=== PATIENT | female | born 1945 | race Caucasian/White ===

== ENCOUNTER 2020-03-22 10:32 | Outpatient (REF) | payer MEDICARE, SELFPAY ==
[2020-03-22 11:36] LABS: MANUAL DIFF FLAG NO
[2020-03-22 11:42] LABS: Basophils Percent Auto 0.6 % (0-2); Eosinophils Absolute Auto 0.1 X10*3/uL (0.0-0.4); Eosinophils Percent Auto 4.1 % (0-4); Hemoglobin 13.2 g/dl (12.0-16.0); Lymphocytes Absolute Auto 1.4 X10*3/uL (1.2-4.9); Lymphocytes Percent Auto 41.8 % (20-40); Mean Corpuscular Hemoglobin 29.7 pg (27.0-33.0); Mean Corpuscular Volume 89.9 fL (80-98); Mean Platelet Volume 9.6 fL (9.4-12.3); Monocytes Absolute Auto 0.4 X10*3/uL (0.1-1.2); Monocytes Percent Auto 12.4 % (2-11); Neutrophils Absolute Auto 1.4 X10*3/uL (2.0-8.3); Neutrophils Percent Auto 41.1 % (45-73); Platelet Count 171 X10*3/uL (160-400); Red Blood Count 4.45 X10*6/uL (4.20-5.50); Red Cell Distribution Width 13.3 % (11.0-16.0); White Blood Count 3.4 X10*3/uL (4.8-10.8)
[2020-03-22 12:00] LABS: Alanine Aminotransferase 22 U/L (0-31); Albumin Level 4.6 g/dL (3.5-5.0); Alkaline Phosphatase 63 U/L (39-117); Anion Gap 14 (12-20); Aspartate Amino Transferase 22 U/L (5-31); Bilirubin Total 0.6 mg/dL (0.0-1.0); Blood Urea Nitrogen 9 mg/dL (9-16); Calcium 9.5 mg/dL (8.4-10.2); Carbon Dioxide 26 mmol/L (22-29); Chloride 104 mmol/L (96-108); Cholesterol 176 mg/dL; Estimated Glomerular Filt Rate > 60; Glucose Random 101 mg/dL (60-115); HDL Cholesterol 81 mg/dL; LDL Cholesterol Calculated 78 mg/dl; Potassium 3.8 mmol/l (3.3-5.1); Sodium 140 mmol/L (135-145); Total Protein 7.1 g/dL (6.5-8.0); Triglycerides 87 mg/dL
== END 2020-03-22 10:33 | disposition home or self-care (01) ==
LOC: HO.LAB 10:32
PROVIDERS: PCP Internal Medicine; Visit Provider Internal Medicine
DX: E78.00 Pure hypercholesterolemia, unspecified (principal); I10 Essential (primary) hypertension
CPT/HCPCS: 36415; 80053; 80061; 85025

== ENCOUNTER 2020-12-14 13:24 | Outpatient (REF) | payer MEDICARE, SELFPAY ==
--- NOTE | ~2020-12-14 | MM_ITS ---
EXAMINATION: MM DIAGNOSTIC DIGITAL BREAST TOMOSYNTHESIS, BILATERAL CLINICAL INFORMATION: Due for yearly. Also follow-up probable benign calcifications anterior upper outer left breast. The lifetime risk of breast cancer based on the Tyrer-Cuzick Model is 3%. COMPARISON: Mammography: 11/14/2019, 05/16/2019, 11/09/2018, 10/22/2018 (BI-RADS 0), 10/08/2017 TECHNIQUE: Digital breast tomosynthesis is performed in both the craniocaudal and mediolateral oblique views along with computer-aided detection (CAD). Synthesized 2D images are generated from the tomosynthesis. Additional views left breast are obtained: Magnification CC, magnification ML x2. FINDINGS: There are scattered areas of fibroglandular density (ACR BI-RADS breast composition Category b). Parenchymal pattern is similar to prior studies. There is no developing density or interval mass or architectural abnormality. The axilla and skin contours are unremarkable. The left breast again has stable nodule 3:00 left breast and incidental dermal lesion overlying the posterior 12:00 position. The calcifications on left for follow-up are stable from prior diagnostic exams and now considered to be benign. There are new very fine punctate calcifications in the left breast upper outer quadrant on the magnification views, likely vascular in etiology. These will be followed again in 6 months to include magnification views. Results are discussed with the patient at time of visit. MM/MM tomosynthesis diagnostic BI IMPRESSION: Left: -New fine probable benign calcifications upper outer quadrant, likely vascular in etiology. -Left calcifications for follow-up are stable from prior diagnostic exams and now considered to be benign. Right: -No mammographic evidence of malignancy. ASSESSMENT: BI-RADS 3: Probably Benign RECOMMENDATION: Diagnostic left mammography in 6 months. This patient's information was entered into a reminder system with a target due date for their next mammogram.
== END 2020-12-14 13:25 | disposition home or self-care (01) ==
LOC: HO.MAMMO 13:24
PROVIDERS: PCP Internal Medicine; Visit Provider Internal Medicine
DX: R92.1 Mammographic calcification found on diagnostic imaging of breast (principal)
CPT/HCPCS: 77062; 77066

== ENCOUNTER 2021-01-21 09:51 | Outpatient (REF) | payer MEDICARE, SELFPAY ==
[2021-01-21 10:47] LABS: MANUAL DIFF FLAG NO
[2021-01-21 10:51] LABS: Basophils Percent Auto 1.2 % (0-2); Eosinophils Absolute Auto 0.1 X10*3/uL (0.0-0.4); Eosinophils Percent Auto 3.2 % (0-4); Hematocrit 38.5 % (37-47); Lymphocytes Absolute Auto 1.6 X10*3/uL (1.2-4.9); Lymphocytes Percent Auto 46.7 % (20-40); Mean Corpuscular HGB Conc 33.8 g/dl (31.0-35.0); Mean Corpuscular Hemoglobin 29.8 pg (27.0-33.0); Mean Corpuscular Volume 88.3 fL (80-98); Mean Platelet Volume 9.5 fL (9.4-12.3); Monocytes Absolute Auto 0.5 X10*3/uL (0.1-1.2); Monocytes Percent Auto 14.7 % (2-11); Neutrophils Absolute Auto 1.2 X10*3/uL (2.0-8.3); Neutrophils Percent Auto 34.2 % (45-73); Platelet Count 177 X10*3/uL (160-400); Red Blood Count 4.36 X10*6/uL (4.20-5.50); Red Cell Distribution Width 13.1 % (11.0-16.0); White Blood Count 3.5 X10*3/uL (4.8-10.8)
[2021-01-21 11:12] LABS: Alanine Aminotransferase 20 U/L (0-31); Albumin Level 4.6 g/dL (3.5-5.0); Alkaline Phosphatase 58 U/L (39-117); Anion Gap 15 (12-20); Aspartate Amino Transferase 22 U/L (5-31); Bilirubin Total 0.6 mg/dL (0.0-1.0); Blood Urea Nitrogen 12 mg/dL (9-16); Calcium 9.8 mg/dL (8.4-10.2); Carbon Dioxide 25 mmol/L (22-29); Chloride 103 mmol/L (96-108); Cholesterol 175 mg/dL; Estimated Glomerular Filt Rate > 60; Glucose Random 95 mg/dL (60-115); HDL Cholesterol 70 mg/dL; LDL Cholesterol Calculated 81 mg/dl; Potassium 3.8 mmol/L (3.3-5.1); Sodium 139 mmol/L (135-145); Total Protein 7.1 g/dL (6.5-8.0); Triglycerides 120 mg/dL
== END 2021-01-21 09:52 | disposition home or self-care (01) ==
LOC: HO.LAB 09:51
PROVIDERS: PCP Internal Medicine; Visit Provider Internal Medicine
DX: E78.00 Pure hypercholesterolemia, unspecified (principal); I10 Essential (primary) hypertension; Q85.03 Schwannomatosis
CPT/HCPCS: 36415; 80053; 80061; 85025

== ENCOUNTER 2021-01-30 08:51 | Outpatient (REF) | payer MEDICARE, SELFPAY ==
--- NOTE | ~2021-01-30 | CT_ITS ---
EXAMINATION: CT CHEST AND ABDOMEN WITH IV CONTRAST CLINICAL INFORMATION: Right upper quadrant pain. Chest tightness. COMPARISON: Previous chest x-rays, most recent December 2018, previous chest CT March 2013 and previous abdominal pelvic CT August 2013. TECHNIQUE: Axial images through the chest and abdomen following oral and 65 mL Omnipaque 350 intravenous contrast. Sagittal and coronal reconstructions on the technologist workstation were performed. FINDINGS: CHEST: There is scarring or subsegmental atelectasis seen in the posterior right lower lobe adjacent to the T10 vertebral body. This is slightly increased from old exams, most recent March 2013. There are surgical clips adjacent to the spine in this region. There is a small 2 mm peripheral or subpleural left upper lobe nodule adjacent to the fissure axial image 103 series 4. The lungs are otherwise clear. There are no enlarged hilar or mediastinal lymph nodes. The heart does not appear enlarged. There is no pericardial effusion. There is mild coronary artery calcification. There is no pleural effusion or pleural thickening. No chest wall mass or enlarged axillary lymph nodes are seen. There are surgical clips adjacent to the right T10 vertebral body. There are degenerative changes of the spine. There is evidence of old trauma to the right ribs. ABDOMEN: The liver is low in attenuation suggestive of fatty infiltration. No focal liver lesion. The gallbladder is normal. There is no biliary duct dilatation. The spleen, pancreas and adrenal glands are normal. There are bilateral renal cysts. Largest cyst measures 5 cm exophytic to the lower pole of the left kidney. The kidneys are otherwise unremarkable. Visualized bowel is unremarkable. The appendix is not seen. The stomach is not optimally distended. No ascites or adenopathy is seen. No hernia is seen. There is evidence of atherosclerotic disease. No aneurysm is seen. There are degenerative changes of the spine. CT/CT abdomen w con IMPRESSION: CHEST: Interval increase in scarring or subsegmental atelectasis in the right lower lobe adjacent to the spine. There are surgical clips adjacent to the right side of the T10 vertebral body. Mild coronary artery calcification. ABDOMEN: Fatty liver. Bilateral renal cysts.
[2021-01-30] MEDS: iohexoL 350 MG/ML 100 ML INFUS..BTL IV (11:39)
[2021-01-30] MEDS: Barium Sulfate Oral (Berry) 450 ML ORAL.SUSP PO (11:41)
== END 2021-01-30 08:52 | disposition home or self-care (01) ==
LOC: HO.CT 08:51
PROVIDERS: Visit Provider Internal Medicine
DX: Q85.03 Schwannomatosis (principal)
CPT/HCPCS: 71260; 74160; Q9967

== ENCOUNTER 2021-06-27 12:50 | Outpatient (REF) | payer MEDICARE, SELFPAY ==
--- NOTE | ~2021-06-27 | MM_ITS ---
EXAMINATION: MM DIAGNOSTIC DIGITAL BREAST TOMOSYNTHESIS, LEFT CLINICAL INFORMATION: Short interval six-month probable fine vascular calcifications upper outer left breast, noted on prior mammography 12/14/2020. The lifetime risk of breast cancer based on the Tyrer-Cuzick Model is 3%. COMPARISON: Mammography: 12/14/2020 (diagnostic, BI-RADS 3), 11/14/2019, 05/16/2019, 11/09/2018, 10/22/2018. TECHNIQUE: Digital breast tomosynthesis is performed in both the craniocaudal and mediolateral oblique views along with computer-aided detection (CAD). Synthesized 2D images are generated from the tomosynthesis. Additional magnification left CC and magnification left ML views are obtained. FINDINGS: There are scattered areas of fibroglandular density (ACR BI-RADS breast composition Category b). There are some round coarse calcifications anterior upper outer left breast previously under surveillance which are benign. The new fine calcifications mid upper outer left breast are stable from prior diagnostic exam 12/14/2020. These may be early vascular and will be reassessed again at time of annual bilateral mammography, due in 6 months. The left breast parenchymal pattern is similar to prior studies. There is old nodule anterior upper outer breast and a dermal lesion overlying the 12:00 left breast. No interval mass or architectural abnormality. Results are provided to the patient at time of visit by the technologist. MM/MM tomosynthesis diagnostic LT IMPRESSION: New fine calcifications upper outer left breast under surveillance are possibly vascular and stable. There are no significant changes from prior study. ASSESSMENT: BI-RADS 3: Probably Benign RECOMMENDATION: Diagnostic mammography at time of annual mammography, due in 6 months. This patient's information was entered into a reminder system with a target due date for their next mammogram.
== END 2021-06-27 12:51 | disposition home or self-care (01) ==
LOC: HO.MAMMO 12:50
PROVIDERS: PCP Internal Medicine; Visit Provider Internal Medicine
DX: R92.1 Mammographic calcification found on diagnostic imaging of breast (principal)
CPT/HCPCS: 77061; 77065

== ENCOUNTER 2021-12-30 09:37 | Outpatient (REF) | payer MEDICARE, SELFPAY ==
[2021-12-30 10:01] LABS: MANUAL DIFF FLAG NO
[2021-12-30 10:39] LABS: Basophils Percent Auto 0.8 % (0-2); Eosinophils Absolute Auto 0.1 X10*3/uL (0.0-0.4); Eosinophils Percent Auto 3.1 % (0-4); Hematocrit 41.4 % (37.0-47.0); Hemoglobin 13.7 g/dl (12.0-16.0); Imm Gran Abs Auto 0.01 X10*3/uL (0.00-0.03); Imm Gran Pct Auto 0.3 % (0.0-0.4); Lymphocytes Absolute Auto 1.6 X10*3/uL (1.2-4.9); Lymphocytes Percent Auto 41.7 % (20-40); Mean Corpuscular HGB Conc 33.1 g/dl (31.0-35.0); Mean Corpuscular Volume 87.7 fL (80.0-98.0); Mean Platelet Volume 9.8 fL (9.4-12.3); Monocytes Absolute Auto 0.5 X10*3/uL (0.1-1.2); Monocytes Percent Auto 12.5 % (2-11); Neutrophils Absolute Auto 1.6 x10*3/uL (2.0-8.3); Neutrophils Percent Auto 41.6 % (45-73); Platelet Count 195 X10*3/uL (160-400); Red Blood Count 4.72 X10*6/uL (4.20-5.50); Red Cell Distribution Width 14.3 % (11.0-16.0); White Blood Count 3.8 X10*3/uL (4.8-10.8)
[2021-12-30 11:05] LABS: Alanine Aminotransferase 16 U/L (0-31); Albumin Level 4.8 g/dL (3.5-5.0); Alkaline Phosphatase 63 U/L (39-117); Anion Gap 15 (12-20); Aspartate Amino Transferase 20 U/L (5-31); Bilirubin Total 0.9 mg/dL (0.0-1.0); Blood Urea Nitrogen 10 mg/dL (9-16); Calcium 9.8 mg/dL (8.4-10.2); Carbon Dioxide 27 mmol/L (22-29); Chloride 104 mmol/L (96-108); Cholesterol 211 mg/dL; Estimated Glomerular Filt Rate > 60; Glucose Random 103 mg/dL (60-115); HDL Cholesterol 86 mg/dL; LDL Cholesterol Calculated 105 mg/dl; Potassium 3.6 mmol/L (3.3-5.1); Sodium 142 mmol/L (135-145); Total Protein 7.4 g/dL (6.5-8.0); Triglycerides 104 mg/dL
[2021-12-30 11:26] LABS: Thyroid Stimulating Hormone 2.24 uIU/mL (0.32-4.0)
== END 2021-12-30 09:38 | disposition home or self-care (01) ==
LOC: HO.LAB 09:37
PROVIDERS: PCP Internal Medicine; Visit Provider Internal Medicine
DX: E78.00 Pure hypercholesterolemia, unspecified (principal); I10 Essential (primary) hypertension; K21.9 Gastro-esophageal reflux disease without esophagitis; R23.8 Other skin changes
CPT/HCPCS: 36415; 80053; 80061; 84443; 85025

== ENCOUNTER 2022-01-09 13:36 | Outpatient (REF) | payer MEDICARE, SELFPAY ==
--- NOTE | ~2022-01-09 | MM_ITS ---
EXAMINATION: MM DIAGNOSTIC DIGITAL BREAST TOMOSYNTHESIS, BILATERAL CLINICAL INFORMATION: Due for yearly. Also follow-up probable benign possibly vascular calcifications mid 12:00 left breast, initially described on mammography 12/14/2020. The lifetime risk of breast cancer based on the Tyrer-Cuzick Model is 2%. COMPARISON: Mammography: 06/27/2021, 12/14/2020 (diagnostic, BI-RADS 3), 11/14/2019, 05/16/2019, 11/09/2018, 10/22/2018. TECHNIQUE: Digital breast tomosynthesis is performed in both the craniocaudal and mediolateral oblique views along with computer-aided detection (CAD). Synthesized 2D images are generated from the tomosynthesis. FINDINGS: There are scattered areas of fibroglandular density (ACR BI-RADS breast composition Category b). No developing density or architectural abnormality. There is a stable smooth nodule anterior outer left breast and a dermal lesion overlying the posterior 12:00 left breast. The axilla and skin contours are unremarkable. The calcifications for follow-up mid 12:00 left breast are stable from prior diagnostic exam and are likely vascular. They will be reassessed again at next bilateral annual mammography to conclude long-term surveillance. Other calcifications anterior outer left breast previously under surveillance are again noted as incidental finding. Results are provided to the patient at time of visit by the technologist. MM/MM tomosynthesis diagnostic BI IMPRESSION: Left: -Calcifications for follow-up mid 12:00 position, stable, possibly vascular. -Stable circumscribed nodule anterior outer breast. Dermal lesion posterior 12:00. Right: -No mammographic evidence of malignancy. ASSESSMENT: BI-RADS 3: Probably Benign RECOMMENDATION: Diagnostic mammography at time of next annual exam, due in 12 months. This patient's information was entered into a reminder system with a target due date for their next mammogram.
== END 2022-01-09 13:37 | disposition home or self-care (01) ==
LOC: HO.MAMMO 13:36
PROVIDERS: PCP Internal Medicine; Visit Provider Internal Medicine
DX: R92.1 Mammographic calcification found on diagnostic imaging of breast (principal)
CPT/HCPCS: 77062; 77066

== ENCOUNTER 2022-07-22 10:20 | Outpatient (REF) | payer MEDICARE, SELFPAY ==
[2022-07-22 10:53] LABS: MANUAL DIFF FLAG NO
[2022-07-22 11:03] LABS: Hematocrit 41.3 % (37.0-47.0); Hemoglobin 13.9 g/dl (12.0-16.0); Mean Corpuscular HGB Conc 33.7 g/dl (31.0-35.0); Mean Corpuscular Hemoglobin 30.1 pg (27.0-33.0); Mean Corpuscular Volume 89.4 fL (80.0-98.0); Platelet Count 174 X10*3/uL (160-400); Red Blood Count 4.62 X10*6/uL (4.20-5.50); Red Cell Distribution Width 13.2 % (11.0-16.0)
[2022-07-22 11:04] LABS: Basophils Percent Auto 0.7 % (0-2); Eosinophils Absolute Auto 0.1 X10*3/uL (0.0-0.4); Eosinophils Percent Auto 3.3 % (0-4); Imm Gran Abs Auto 0.01 X10*3/uL (0.00-0.03); Imm Gran Pct Auto 0.3 % (0.0-0.4); Lymphocytes Absolute Auto 1.4 X10*3/uL (1.2-4.9); Lymphocytes Percent Auto 45.9 % (20-40); Mean Platelet Volume 9.7 fL (9.4-12.3); Monocytes Absolute Auto 0.4 X10*3/uL (0.1-1.2); Monocytes Percent Auto 13.2 % (2-11); Neutrophils Absolute Auto 1.1 x10*3/uL (2.0-8.3); Neutrophils Percent Auto 36.6 % (45-73)
[2022-07-22 11:49] LABS: Alanine Aminotransferase 17 U/L (0-31); Albumin Level 4.5 g/dL (3.5-5.0); Alkaline Phosphatase 67 U/L (39-117); Anion Gap 14 (12-20); Aspartate Amino Transferase 19 U/L (5-31); Bilirubin Total 0.9 mg/dL (0.0-1.0); Blood Urea Nitrogen 9 mg/dL (9-16); Calcium 9.7 mg/dL (8.4-10.2); Carbon Dioxide 26 mmol/L (22-29); Chloride 103 mmol/L (96-108); Cholesterol 200 mg/dL; Estimated Glomerular Filt Rate > 60; Glucose Random 95 mg/dL (60-115); HDL Cholesterol 82 mg/dL; LDL Cholesterol Calculated 101 mg/dl; Potassium 3.7 mmol/L (3.3-5.1); Sodium 139 mmol/L (135-145); Total Protein 6.9 g/dL (6.5-8.0); Triglycerides 85 mg/dL
[2022-07-22 12:10] LABS: Vitamin D 25-OH Total 27.6 ng/mL (>30)
== END 2022-07-22 10:21 | disposition home or self-care (01) ==
LOC: HO.LAB 10:20
PROVIDERS: PCP Internal Medicine; Visit Provider Internal Medicine
DX: E78.00 Pure hypercholesterolemia, unspecified (principal); G47.62 Sleep related leg cramps; I10 Essential (primary) hypertension; K44.9 Diaphragmatic hernia without obstruction or gangrene
CPT/HCPCS: 36415; 80053; 80061; 82306; 85025

== ENCOUNTER → 2022-09-17 09:49 | Outpatient (BNVA) | payer MEDICARE, SELFPAY | PROVIDERS: PCP Internal Medicine; Visit Provider Orthopaedic Surgery | DX: M65.312 Trigger thumb, left thumb (principal); G56.03 Carpal tunnel syndrome, bilateral upper limbs | CPT/HCPCS: 20550; 99202; J1100 ==

== ENCOUNTER 2022-11-28 07:42 | Outpatient (REF) | payer MEDICARE, SELFPAY ==
--- NOTE | ~2022-11-28 | CT_ITS ---
EXAMINATION: CT HEAD WITHOUT CONTRAST CLINICAL INFORMATION: Ataxic gait. Concussion. COMPARISON: Brain MRI dated 01/27/2019. TECHNIQUE: Contiguous axial imaging was performed from the skull base to vertex without intravenous administration of contrast. This CT examination was performed using dose optimization techniques as appropriate, variously including the following: *Automated exposure control *Adjustment of mA and/or kV according to patient size (this includes techniques or standardized protocols for targeted exams where dose is matched to indication/reason for exam; i.e. extremities or head) *Use of iterative reconstruction technique DLP: 805 mGy-cm FINDINGS: There is no evidence of acute intracranial hemorrhage or territorial infarction. No abnormal mass effect or midline shift is seen. Doran to white matter differentiation is well preserved. No extra-axial fluid collections are identified. No evidence of hydrocephalus. Mild chronic white matter microangiopathic changes noted. The osseous structures and soft tissues are normal. The mastoid air cells and visualized portions of the paranasal sinuses are fairly well aerated. CT/CT head/brain wo IV con IMPRESSION: No acute intracranial hemorrhage or territorial infarction. Generalized parenchymal volume loss and mild chronic white matter microangiopathy.
== END 2022-11-28 07:43 | disposition home or self-care (01) ==
LOC: HO.CT 07:42
PROVIDERS: PCP Internal Medicine; Visit Provider Internal Medicine
DX: S06.0X0S Concussion without loss of consciousness, sequela (principal); R26.0 Ataxic gait
CPT/HCPCS: 70450

== ENCOUNTER 2022-12-19 11:48 | Emergency (ER) | payer MEDICARE, SELFPAY ==
--- NOTE | ~2022-12-19 | XR_ITS ---
EXAMINATION: XR CHEST CLINICAL INFORMATION: Chest pain COMPARISON: Previous chest CT January 2021 and chest x-ray December 2018 TECHNIQUE: 2 views of the chest were obtained. FINDINGS: The cardiac and mediastinal contours are stable. The lungs are clear. There are surgical clips adjacent to the right lower thoracic spine. There is no pleural effusion or pneumothorax. There are degenerative changes of the thoracic spine. There are old right rib fractures. XR/XR chest 2V IMPRESSION: No evidence for acute disease in the chest.
--- NOTE | 2022-12-19 11:54 | ECG_ITS ---
Test Reason : HEART ATTACK? Blood Pressure : / mmHG Vent. Rate : 084 BPM Atrial Rate : 084 BPM P-R Int : 130 ms QRS Dur : 082 ms QT Int : 374 ms P-R-T Axes : 043 030 035 degrees QTc Int : 441 ms Normal sinus rhythm Normal ECG When compared with ECG of 26-JAN-2019 15:08, No significant change was found Referred By: Generic ED Physician Electronically Signed By:aMnny Arango
[2022-12-19 12:44] VITALS: BP 159/77; PULSE 79; RESP 8; TEMP 36.6; O2SAT 98; BMI 30.9
--- NOTE | 2022-12-19 12:45 | ED_ITS ---
HPI - General Adult General Chief complaint: General Medical Stated complaint: heart attack Time Seen by Provider: 12/19/22 18:43 Source: patient, family (daughter), RN notes reviewed and old records reviewed Mode of arrival: ambulatory Limitations: no limitations History of Present Illness HPI narrative: 77-year-old female past medical history significant for hypertension presents for evaluation of left upper back pain. Patient reports her pain started yesterday evening A radiates to the back of her neck. She denies any chest pain or shortness of breath Per the daughter, the patient was doing yard work and mowing the lawn She states that her pain comes and goes and is worse if she sits in certain positions or moves her left She describes it as ?muscle spasms. ? At worst her pain is 10/10 Her pain is currently a 6/10. She tried acetaminophen without any change or symptoms. She took 2 aspirin with mild improvement in her symptoms Denies any specific injury that she Related Data Home Medications Medication Instructions Recorded Confirmed lisinopril 10 1 tab PO DAILY 09/17/22 mg-hydrochlorothiazide 12.5 mg tablet omeprazole 10 mg capsule,delayed 10 mg PO DAILY 09/17/22 release simvastatin 5 mg tablet 5 mg PO DAILY 09/17/22 Previous Rx's Medication Instructions Recorded baclofen 10 mg tablet 10 mg PO BID muscle spasms #10 tabs 12/19/22 oxycodone 5 mg tablet 5 mg PO Q6H PRN severe pain (scale 12/19/22 score 7-10) #12 tabs Allergies Allergy/AdvReac Type Severity Reaction Status Date / Time caffeine [Cafergot] Allergy Unknown Unknown Verified 12/19/22 12:44 ergotamine [Cafergot] Allergy Unknown Unknown Verified 12/19/22 12:44 penicillin V Allergy Unknown angioedema Verified 12/19/22 12:44 Penicillins Allergy Unknown TONGUE Verified 12/19/22 12:44 SWELLING sucralfate [From CARAFATE] Allergy Unknown UNKNOWN Verified 12/19/22 12:44 erythromycin base AdvReac Unknown LETHARGY Verified 12/19/22 12:44 Erythromycin Allergy Unknown Anxiety Uncoded 09/17/22 10:08 Review of Systems Constitutional: Constitutional: Reports as per HPI, Denies chills, Denies fatigue, Denies fever(s) and Denies headache(s) ENT: Denies headache(s) Cardiovascular: Cardiovascular: Denies chest pain and Denies dyspnea Respiratory: Respiratory: Denies cough and Denies dyspnea Gastrointestinal: Gastrointestinal: Denies abdominal pain, Denies constipation and Denies vomiting Genitourinary: Genitourinary: Denies dysuria Musculoskeletal: Musculoskeletal: Reports back pain Neurologic: Denies headache(s) and Denies focal weakness Endocrine: Endocrine: Denies fatigue PMFSH Past Medical History Medical History (Updated 12/19/22 @ 19:06 by Lester Ortiz) Acid reflux High blood pressure High cholesterol Social History Social History (Updated 09/17/22 @ 10:10 by Barbra Rodríguez [facility] C[facility]ang) Alcohol intake: current Alcohol intake frequency: a few times a month Smoked in Last 30 Days: No Use of substances other than those prescribed or required for medical reasons: No Advance Directives: No Advance Directives Information Provided: No Current occupational status: retired Current occupation: rt hand Physical Exam ED Vital Signs: Vital Signs - 24 hr 12/19/22 12:44 12/19/22 18:52 Temperature 97.9 F 99.6 F Pulse Rate 79 96 Respiratory Rate 8 L 18 Blood Pressure 159/77 H 153/87 H Pulse Oximetry 98 100 Oxygen Delivery Method Room Air Room Air BMI result Body Mass Index 30.9 Const General: healthy appearing, comfortable, no acute distress, alert and awake Nutritional Appearance: well nourished Orientation/consciousness: patient oriented x3 HENMT Head: Yes normocephalic and Yes atraumatic Eyes Eyelids: Yes eyelids normal Conjunctivae: conjunctivae normal Sclerae: sclerae normal Corneas: corneas normal Pupils: Equal, round and reactive pupils present EOM: EOMs intact bilaterally Neck Neck: Yes full ROM Resp Effort & Inspection: normal respiratory effort, able to speak in complete sentences, no audible wheezes and not labored Auscultation: clear to auscultation bilaterally Cardio Rate: regular rate Rhythm: regular rhythm GI Inspection: No distended Palpation (GI): Soft to palpation, not firm, nontender, no guarding and not rigid Auscultation: normoactive bowel sounds Back/Spine/Pelvis Other: Patient in no tenderness to the left shoulder, she does have left thoracic paraspinous muscle tenderness. She is tender to even light palpation. There are no palpable deformities. No vertebral tenderness. Patient has full range of motion to the neck and both upper extremities. Skin General skin exam: elasticity normal Neuro General: patient oriented x3 Cranial nerves: Yes Equal, round and reactive pupils present and Yes Bilaterally intact EOM present Cognition (Neuro): normal cognition Extrem Other: Moving all extremities well without any obvious deformities Course Course Course Narrative: RME performed by Sari Hess PA-C. Patient is a 77 year old assigned femal e at presenting to the emergency department with left sided shoulder pain. Patient states that she is having extreme' left shoulder pain that came out of no where and has remained intense. Labs and imaging ordered. Patient placed back in the waiting room pending room availability and results. Medical Decision Making Medical Decision Making MDM Narrative: 77-year-old female presents for evaluation of left upper back pain. 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 He chest pain or history of coronary artery disease. Her workup is reassuring, her EKG is nonischemic, she had a troponin that was undetectable despite over 24 hours of pain. Her pain appears to be musculoskeletal and reproducible on exam. Chest x-ray is clear. The patient has no difficulty breathing or shortness of breath or cough. Will get the patient's pain with oxycodone and baclofen for a couple of days and she will follow-up with PCP. She was ruled out for ACS. I do not see any indication for any other further emergent evaluation. Differential Diagnosis Differential Diagnoses: The differential diagnosis associated with the presentation includes Muscle strain Back pain Cervical radiculopathy ACS less likely Bronchitis Pneumonia 80 less likely Admission/Observation Consideration of admission/observation: Escalation of care including admission/observation considered 77-year-old female with chest pain was considered for admission however she ruled out for ACS Lab Data [facility] Lab Attestation statement: I reviewed the patient's lab results. Hematology without any significant findings, no leukocytosis, no anemia, no left shift. Chemistries results showing normal electrolytes with a sodium of 137, potassium 3.3. Normal renal function, troponin undetectable at less than 2.7 12/19/22 13:08 12/19/22 13:08 Labs: Lab Results 12/19/22 12/19/22 12/19/22 Range/Units 13:08 13:08 13:08 WBC 6.8 (4.8-10.8) X10*3/uL RBC 4.95 (4.20-5.50) X10*6/uL Hgb 14.6 (12.0-16.0) g/dl Hct 43.2 (37.0-47.0) % MCV 87.3 (80.0-98.0) fL MCH 29.5 (27.0-33.0) pg MCHC 33.8 (31.0-35.0) g/dl RDW 12.9 (11.0-16.0) % Plt Count 186 (160-400) X10*3/uL MPV 9.5 (9.4-12.3) fL Immature Gran % (Auto) 0.3 (0.0-0.4) % Neut % (Auto) 64.8 (45-73) % Lymph % (Auto) 19.4 L (20-40) % [place] % (Auto) 13.6 H (2-11) % Eos % (Auto) 1.5 (0-4) % Baso % (Auto) 0.4 (0-2) % Lymph # (Auto) 1.3 (1.2-4.9) X10*3/uL [place] # (Auto) 0.9 (0.1-1.2) X10*3/uL Eos # (Auto) 0.1 (0.0-0.4) X10*3/uL Baso # (Auto) 0.0 (0.0-0.2) X10*3/uL Abs Immat Gran (auto) 0.02 (0.00-0.03) X10*3/uL Absolute Neuts (auto) 4.4 (2.0-8.3) x10*3/uL Absolute Nucleated RBC 0.000 (0.0-0.012) X10*3/uL Nucleated RBC % (auto) 0.0 (0.0-0.2) /100WBC Sodium 137 (135-145) mmol/L Potassium 3.3 (3.3-5.1) mmol/L Chloride 101 (96-108) mmol/L Carbon Dioxide 23 (22-29) mmol/L Anion Gap 16 (12-20) BUN 12 (9-16) mg/dL Creatinine 0.78 (0.5-1.4) mg/dL Estim Creat Clear Calc 65.8 Estimated GFR > 60 Random Glucose 92 (60-115) mg/dL Calcium 10.7 H D (8.4-10.2) mg/dL Magnesium 1.8 (1.6-2.6) mg/dL Total Bilirubin 0.5 (0.0-1.0) mg/dL AST 18 (5-31) U/L ALT 15 (0-31) U/L Alkaline Phosphatase 74 (39-117) U/L Troponin I High Sens < 2.7 (<3.5-17.0) ng/L B-Natriuretic Peptide (<100) pg/mL Total Protein 8.0 (6.5-8.0) g/dL Albumin 4.7 (3.5-5.0) g/dL 12/19/22 Range/Units 13:08 WBC (4.8-10.8) X10*3/uL RBC (4.20-5.50) X10*6/uL Hgb (12.0-16.0) g/dl Hct (37.0-47.0) % MCV (80.0-98.0) fL MCH (27.0-33.0) pg MCHC (31.0-35.0) g/dl RDW (11.0-16.0) % Plt Count (160-400) X10*3/uL MPV (9.4-12.3) fL Immature Gran % (Auto) (0.0-0.4) % Neut % (Auto) (45-73) % Lymph % (Auto) (20-40) % [place] % (Auto) (2-11) % Eos % (Auto) (0-4) % Baso % (Auto) (0-2) % Lymph # (Auto) (1.2-4.9) X10*3/uL [place] # (Auto) (0.1-1.2) X10*3/uL Eos # (Auto) (0.0-0.4) X10*3/uL Baso # (Auto) (0.0-0.2) X10*3/uL Abs Immat Gran (auto) (0.00-0.03) X10*3/uL Absolute Neuts (auto) (2.0-8.3) x10*3/uL Absolute Nucleated RBC (0.0-0.012) X10*3/uL Nucleated RBC % (auto) (0.0-0.2) /100WBC Sodium (135-145) mmol/L Potassium (3.3-5.1) mmol/L Chloride (96-108) mmol/L Carbon Dioxide (22-29) mmol/L Anion Gap (12-20) BUN (9-16) mg/dL Creatinine (0.5-1.4) mg/dL Estim Creat Clear Calc Estimated GFR Random Glucose (60-115) mg/dL Calcium (8.4-10.2) mg/dL Magnesium (1.6-2.6) mg/dL Total Bilirubin (0.0-1.0) mg/dL AST (5-31) U/L ALT (0-31) U/L Alkaline Phosphatase (39-117) U/L Troponin I High Sens (<3.5-17.0) ng/L B-Natriuretic Peptide 36 (<100) pg/mL Total Protein (6.5-8.0) g/dL Albumin (3.5-5.0) g/dL Independent Interpretation I performed an independent interpretation of an: EKG and Plain X-Ray (No infiltrates, pleural effusions or pneumothorax) Interpretation: Normal sinus rhythm with a rate of 84 beats per minute. No ST segment changes, no ectopy. No change when compared to December of 2018 Radiology Impression Discussion of test interpretation with radiology: I have reviewed the radiologist's reading. (No evidence for acute disease of the chest) Tests considered The following testing was considered but not selected: CT angiography to rule out PE, but the patient's pain is not hypoxic and has no risk factors for PE Discharge Plan Discharge Clinical Impression: Upper back pain on left side Patient Disposition: Home, Self-Care Instructions: Back Pain (ED) Additional Instructions: Your workup in the emergency department today was reassuring. This includes your blood work, EKG and chest x-ray Your pain is most likely musculoskeletal in origin. You may continue to use Tylenol as needed for pain You may use oxycodone for more severe breakthrough pain. This may make you sleepy, did not drink alcohol or drive after taking it You may also use baclofen as needed for muscle spasms. This may also make you sleepy, did not drink alcohol or drive after taking it You should also use warm compresses Follow-up with your primary doctor Prescriptions: New oxycodone 5 mg tablet 5 mg PO Q6H PRN (Reason: severe pain (scale score 7-10)) Qty: 12 0RF Rx Instructions: Partial Fill upon patient request. baclofen 10 mg tablet 10 mg PO BID Qty: 10 0RF No Action omeprazole 10 mg capsule,delayed release(DR/EC) 10 mg PO DAILY lisinopril-hydrochlorothiazide 10-12.5 mg tablet 1 tab PO DAILY simvastatin 5 mg tablet 5 mg PO DAILY
[2022-12-19 13:31] LABS: Basophils Percent Auto 0.4 % (0-2); Eosinophils Absolute Auto 0.1 X10*3/uL (0.0-0.4); Eosinophils Percent Auto 1.5 % (0-4); Hematocrit 43.2 % (37.0-47.0); Hemoglobin 14.6 g/dl (12.0-16.0); Imm Gran Abs Auto 0.02 X10*3/uL (0.00-0.03); Imm Gran Pct Auto 0.3 % (0.0-0.4); Lymphocytes Absolute Auto 1.3 X10*3/uL (1.2-4.9); Lymphocytes Percent Auto 19.4 % (20-40); MANUAL DIFF FLAG NO; Mean Corpuscular HGB Conc 33.8 g/dl (31.0-35.0); Mean Corpuscular Hemoglobin 29.5 pg (27.0-33.0); Mean Corpuscular Volume 87.3 fL (80.0-98.0); Mean Platelet Volume 9.5 fL (9.4-12.3); Monocytes Absolute Auto 0.9 X10*3/uL (0.1-1.2); Monocytes Percent Auto 13.6 % (2-11); Neutrophils Absolute Auto 4.4 x10*3/uL (2.0-8.3); Neutrophils Percent Auto 64.8 % (45-73); Platelet Count 186 X10*3/uL (160-400); Red Blood Count 4.95 X10*6/uL (4.20-5.50); Red Cell Distribution Width 12.9 % (11.0-16.0); White Blood Count 6.8 X10*3/uL (4.8-10.8)
[2022-12-19 13:44] LABS: Anion Gap 16 (12-20)
[2022-12-19 13:49] LABS: Alanine Aminotransferase 15 U/L (0-31); Albumin Level 4.7 g/dL (3.5-5.0); Alkaline Phosphatase 74 U/L (39-117); Aspartate Amino Transferase 18 U/L (5-31); Bilirubin Total 0.5 mg/dL (0.0-1.0); Blood Urea Nitrogen 12 mg/dL (9-16); Calcium 10.7 mg/dL (8.4-10.2); Carbon Dioxide 23 mmol/L (22-29); Chloride 101 mmol/L (96-108); Creatinine Clr Calc Pharmacy 65.8; Estimated Glomerular Filt Rate > 60; Glucose Random 92 mg/dL (60-115); Magnesium 1.8 mg/dL (1.6-2.6); Potassium 3.3 mmol/L (3.3-5.1); Sodium 137 mmol/L (135-145)
[2022-12-19 13:56] LABS: B Type Natriuretic Peptide 36 pg/mL (<100)
[2022-12-19 13:57] LABS: Troponin-I High Sensitivity < 2.7 ng/L (<3.5-17.0)
[2022-12-19 18:52] VITALS: BP 153/87; PULSE 96; RESP 18; TEMP 37.6; O2SAT 100
[2022-12-19] MEDS: oxyCODONE HCl Immed Release 5 MG TABLET PO (19:24)
--- NOTE | 2022-12-19 19:29 | PC.NURSE ---
alert/oriented x4. assisted to wheelchair for dc. no distress. speaking fluently. respirations nonlabored. skin color pink/warm/dry. daughter to drive home.
== END 2022-12-19 19:30 | disposition home or self-care (01) ==
PROVIDERS: Physician Assistant Medical; Emergency Provider Emergency Medicine
DX: M54.6 Pain in thoracic spine (principal); I10 Essential (primary) hypertension; E78.5 Hyperlipidemia, unspecified; Z79.899 Other long term (current) drug therapy
CPT/HCPCS: 36415; 71046; 80053; 83735; 83880; 84484; 85025; 93005; 99283; 99284

== ENCOUNTER → 2022-12-19 11:54 | Outpatient (BNV) | payer MEDICARE, SELFPAY | PROVIDERS: Emergency Provider Emergency Medicine; Visit Provider Internal Medicine Cardiovascular Disease | DX: M54.6 Pain in thoracic spine (principal) | CPT/HCPCS: 93010 ==

== ENCOUNTER 2023-01-13 12:52 | Outpatient (REF) | payer MEDICARE, SELFPAY ==
--- NOTE | ~2023-01-13 | MM_ITS ---
EXAMINATION: MM DIAGNOSTIC DIGITAL BREAST TOMOSYNTHESIS, BILATERAL CLINICAL INFORMATION: Six-month follow-up for probably benign left breast calcifications, 12:00 axis, middle depth. Patient also due for bilateral screening mammography. The lifetime risk of breast cancer based on the Tyrer-Cuzick Model is 2%. COMPARISON: Mammography: 01/09/2022, 06/27/2021, 12/14/2020, 11/14/2019, and dating back to 2018. TECHNIQUE: Digital breast tomosynthesis is performed in both the craniocaudal and mediolateral oblique views along with computer-aided detection (CAD). Synthesized 2D images are generated from the tomosynthesis. In addition to standard views, 2-D spot magnification left CC view was also performed. FINDINGS: There are scattered areas of fibroglandular density (ACR BI-RADS breast composition Category b). There are no significant masses, abnormal calcifications, or other abnormalities. Subtle, tightly grouped punctate fine calcifications in the 12:00 axis of the left breast, middle one third, are entirely stable and unchanged in both number and morphology from prior exams, and are consistent with benign etiology, probably vascular. There has been no suspicious change. These have been stable over a two-year time period and are now classifiable as benign. A benign focus of calcifications is also present in the upper outer left breast, anterior one third. There is a stable intramammary lymph node in the approximate 3:00 axis left breast. The parenchymal pattern is unchanged in both breasts. Results were provided to the patient at time of visit by the technologist. MM/MM tomosynthesis diagnostic BI IMPRESSION: Benign findings left breast. No findings suspicious for malignancy either breast. Recommend the patient return to routine annual screening. ASSESSMENT: BI-RADS BI-RADS 2 - Benign Findings RECOMMENDATION: 1 year F/U This patient's information was entered into a reminder system with a target due date for their next mammogram.
== END 2023-01-13 12:53 | disposition home or self-care (01) ==
LOC: HO.MAMMO 12:52
PROVIDERS: PCP Internal Medicine; Visit Provider Internal Medicine
DX: R92.1 Mammographic calcification found on diagnostic imaging of breast (principal)
CPT/HCPCS: 77062; 77066

== ENCOUNTER → 2023-01-13 13:00 | Outpatient (BNV) | payer MEDICARE, SELFPAY | PROVIDERS: PCP Internal Medicine; Visit Provider Radiology Diagnostic Radiology | DX: R92.1 Mammographic calcification found on diagnostic imaging of breast (principal) | CPT/HCPCS: 77062; 77066; G0279 ==

== ENCOUNTER 2023-02-16 09:12 | Outpatient (REF) | payer MEDICARE, SELFPAY ==
--- NOTE | ~2023-02-16 | XR_ITS ---
EXAMINATION: XR CERVICAL SPINE CLINICAL INFORMATION: Patient stated she had a concussion back to 09/2022 and sharp neck and shoulder blade pain for 10 weeks. COMPARISON: None available. TECHNIQUE: 4 views of the cervical spine. FINDINGS: Severe degenerative changes at C5-C6 with endplate destruction, subchondral sclerosis, hypertrophic change and loss of disc space height. Mild anterolisthesis of C4 on C5. Degenerative changes at C6-C7 with mild loss of disc space height. XR/XR cervical spine 3V IMPRESSION: Severe, destructive changes at C5-C6. Recommend CT scan or MRI for further evaluation.
[2023-02-16 09:34] LABS: MANUAL DIFF FLAG NO
[2023-02-16 10:03] LABS: Basophils Percent Auto 0.8 % (0-2); Eosinophils Absolute Auto 0.3 X10*3/uL (0.0-0.4); Eosinophils Percent Auto 6.6 % (0-4); Hematocrit 34.9 % (37.0-47.0); Hemoglobin 11.7 g/dl (12.0-16.0); Imm Gran Abs Auto 0.01 X10*3/uL (0.00-0.03); Imm Gran Pct Auto 0.3 % (0.0-0.4); Lymphocytes Absolute Auto 1.2 X10*3/uL (1.2-4.9); Lymphocytes Percent Auto 30.9 % (20-40); Mean Corpuscular HGB Conc 33.5 g/dl (31.0-35.0); Mean Corpuscular Hemoglobin 28.9 pg (27.0-33.0); Mean Corpuscular Volume 86.2 fL (80.0-98.0); Mean Platelet Volume 9.3 fL (9.4-12.3); Monocytes Absolute Auto 0.5 X10*3/uL (0.1-1.2); Monocytes Percent Auto 13.3 % (2-11); Neutrophils Absolute Auto 1.8 x10*3/uL (2.0-8.3); Neutrophils Percent Auto 48.1 % (45-73); Platelet Count 183 X10*3/uL (160-400); Red Blood Count 4.05 X10*6/uL (4.20-5.50); Red Cell Distribution Width 13.1 % (11.0-16.0); White Blood Count 3.8 X10*3/uL (4.8-10.8)
[2023-02-16 10:37] LABS: Alanine Aminotransferase 17 U/L (0-31); Albumin Level 4.1 g/dL (3.5-5.0); Alkaline Phosphatase 113 U/L (39-117); Anion Gap 12 (12-20); Aspartate Amino Transferase 21 U/L (5-31); Bilirubin Total 0.3 mg/dL (0.0-1.0); Blood Urea Nitrogen 16 mg/dL (9-16); Calcium 10.1 mg/dL (8.4-10.2); Carbon Dioxide 26 mmol/L (22-29); Chloride 103 mmol/L (96-108); Cholesterol 172 mg/dL (<200); Estimated Glomerular Filt Rate > 60; Glucose Random 90 mg/dL (60-115); HDL Cholesterol 63 mg/dL (>40); LDL Cholesterol Calculated 90 mg/dL (<100); Potassium 3.8 mmol/L (3.3-5.1); Sodium 137 mmol/L (135-145); Total Protein 7.4 g/dL (6.5-8.0); Triglycerides 95 mg/dL (<150)
== END 2023-02-16 09:13 | disposition home or self-care (01) ==
LOC: HO.XRAY 09:12
PROVIDERS: PCP Internal Medicine; Visit Provider Internal Medicine
DX: M54.2 Cervicalgia (principal); E78.00 Pure hypercholesterolemia, unspecified; I10 Essential (primary) hypertension; M65.312 Trigger thumb, left thumb
CPT/HCPCS: 36415; 72040; 80053; 80061; 85025

== ENCOUNTER 2023-04-16 09:25 | Outpatient (REF) | payer MEDICARE, SELFPAY ==
[2023-04-16 09:43] LABS: MANUAL DIFF FLAG NO
[2023-04-16 10:30] LABS: Basophils Percent Auto 1.1 % (0-2); Eosinophils Absolute Auto 0.1 X10*3/uL (0.0-0.4); Hematocrit 41.2 % (37.0-47.0); Hemoglobin 13.5 g/dl (12.0-16.0); Imm Gran Abs Auto 0.02 X10*3/uL (0.00-0.03); Imm Gran Pct Auto 0.5 % (0.0-0.4); Lymphocytes Absolute Auto 1.8 X10*3/uL (1.2-4.9); Lymphocytes Percent Auto 48.4 % (20-40); Mean Corpuscular HGB Conc 32.8 g/dl (31.0-35.0); Mean Corpuscular Hemoglobin 29.2 pg (27.0-33.0); Mean Corpuscular Volume 89.2 fL (80.0-98.0); Mean Platelet Volume 9.7 fL (9.4-12.3); Monocytes Absolute Auto 0.5 X10*3/uL (0.1-1.2); Monocytes Percent Auto 12.6 % (2-11); Neutrophils Absolute Auto 1.3 x10*3/uL (2.0-8.3); Neutrophils Percent Auto 34.4 % (45-73); Platelet Count 184 X10*3/uL (160-400); Red Blood Count 4.62 X10*6/uL (4.20-5.50); Red Cell Distribution Width 14.5 % (11.0-16.0); White Blood Count 3.7 X10*3/uL (4.8-10.8)
[2023-04-16 11:04] LABS: Alanine Aminotransferase 15 U/L (0-31); Albumin Level 4.6 g/dL (3.5-5.0); Alkaline Phosphatase 79 U/L (39-117); Anion Gap 11 (12-20); Aspartate Amino Transferase 19 U/L (5-31); Bilirubin Total 0.7 mg/dL (0.0-1.0); Blood Urea Nitrogen 17 mg/dL (9-16); Calcium 10.1 mg/dL (8.4-10.2); Carbon Dioxide 30 mmol/L (22-29); Chloride 103 mmol/L (96-108); Cholesterol 198 mg/dL (<200); Estimated Glomerular Filt Rate > 60; Glucose Random 91 mg/dL (60-115); HDL Cholesterol 90 mg/dL (>40); LDL Cholesterol Calculated 88 mg/dL (<100); Potassium 3.3 mmol/L (3.3-5.1); Sodium 141 mmol/L (135-145); Total Protein 7.9 g/dL (6.5-8.0); Triglycerides 101 mg/dL (<150)
[2023-04-16 11:27] LABS: Uric Acid 8.3 mg/dL (2.4-5.7)
== END 2023-04-16 09:26 | disposition home or self-care (01) ==
LOC: HO.LAB 09:25
PROVIDERS: PCP Internal Medicine; Visit Provider Internal Medicine
DX: E78.00 Pure hypercholesterolemia, unspecified (principal); I10 Essential (primary) hypertension; M10.9 Gout, unspecified; M47.812 Spondylosis without myelopathy or radiculopathy, cervical region; Z63.4 Disappearance and death of family member
CPT/HCPCS: 36415; 80053; 80061; 84550; 85025

== ENCOUNTER 2023-06-12 10:21 | Day surgery (SDC) | payer MEDICARE, SELFPAY ==
--- NOTE | 2023-06-10 12:45 | HO.ANESPROP2 ---
Documented by User: Kenia Garvey NP 06/10/23 12:46 HPI - Anesthesia Eval Consult details Narrative: 77yo F for Colonoscopy PMFSH Active Problems Active Problems: All Active Problems (Updated 12/20/22 @ 00:05 by Ernie Lagos) Carpal tunnel syndrome on both sides (Acute) Trigger thumb of left hand (Acute) Past Medical History Medical History Migraines Microhematuria Esophagitis Hiatal hernia Hx of lipoma Gout History of benign schwannoma Hx of concussion Chronic leukopenia Acid reflux High blood pressure High cholesterol Surgical History Surgical History History of thoracotomy History of esophagogastroduodenoscopy (EGD) H/O colonoscopy Hx of appendectomy History of tubal ligation Social History Social History Alcohol intake: current Alcohol intake frequency: a few times a month Advance Directives: No Advance Directives Information Provided: Yes Current occupational status: retired Current occupation: rt hand Meds Allergies Allergy/AdvReac Type Severity Reaction Status Date / Time penicillin V Allergy Severe angioedema Verified 06/12/23 11:14 Penicillins Allergy Severe TONGUE Verified 06/12/23 11:14 SWELLING caffeine [Cafergot] Allergy Intermediate Feeling of Verified 06/12/23 11:14 doom ergotamine [Cafergot] Allergy Intermediate Feeling of Verified 06/12/23 11:14 doom sucralfate [From CARAFATE] Allergy Unknown UNKNOWN Verified 06/12/23 11:14 erythromycin base AdvReac Intermediate LETHARGY Verified 06/12/23 11:14 Home Medications Medication Instructions Recorded Confirmed Last Taken Type lisinopril 10 1 tab PO DAILY 09/17/22 06/12/23 06/11/23 History mg-hydrochlorothiazide 12.5 mg tablet omeprazole 10 mg capsule,delayed 20 mg PO DAILY 09/17/22 06/12/23 Unknown History release simvastatin 5 mg tablet 20 mg PO QPM 09/17/22 06/12/23 Unknown History naproxen 500 mg tablet 500 mg PO BID PRN Pain 06/10/23 06/12/23 06/05/23 History allopurinol 300 mg tablet 300 mg PO DAILY 06/12/23 06/12/23 Unknown History Exam Pertinent Lab Results Pertinent Lab Results: Laboratory Tests 04/16/23 09:42 WBC 3.7 L Hgb 13.5 Hct 41.2 Plt Count 184 Sodium 141 Potassium 3.3 Chloride 103 Carbon Dioxide 30 H BUN 17 H Creatinine 0.82 Narrative Narrative: EKG 11/2022 Vent. Rate : 084 BPM Atrial Rate : 084 BPM P-R Int : 130 ms QRS Dur : 082 ms QT Int : 374 ms P-R-T Axes : 043 030 035 degrees QTc Int : 441 ms Normal sinus rhythm Normal ECG When compared with ECG of 26-JAN-2019 15:08, No significant change was found Assessment and Plan Assessment Anesthesia Assessment: Chart Reviewed Documented by User: Kathleen Cintron MD 06/12/23 12:40 PMFSH Active Problems Active Problems: All Active Problems (Updated 06/12/23 @ 11:12 by Kathleen Cintron MD) Carpal tunnel syndrome on both sides (Acute) Trigger thumb of left hand (Acute) Past Medical History Medical History Migraines Microhematuria Esophagitis Hiatal hernia Hx of lipoma Gout History of benign schwannoma Hx of concussion Chronic leukopenia Acid reflux High blood pressure High cholesterol Family History Family history of problems with anesthesia: No Surgical History Surgical History History of thoracotomy History of esophagogastroduodenoscopy (EGD) H/O colonoscopy Hx of appendectomy History of tubal ligation History of Problems with Anesthesia: No Social History Social History Alcohol intake: current Alcohol intake frequency: a few times a month Advance Directives: No Advance Directives Information Provided: Yes Current occupational status: retired Current occupation: rt hand Meds Allergies Allergy/AdvReac Type Severity Reaction Status Date / Time penicillin V Allergy Severe angioedema Verified 06/12/23 11:14 Penicillins Allergy Severe TONGUE Verified 06/12/23 11:14 SWELLING caffeine [Cafergot] Allergy Intermediate Feeling of Verified 06/12/23 11:14 doom ergotamine [Cafergot] Allergy Intermediate Feeling of Verified 06/12/23 11:14 doom sucralfate [From CARAFATE] Allergy Unknown UNKNOWN Verified 06/12/23 11:14 erythromycin base AdvReac Intermediate LETHARGY Verified 06/12/23 11:14 Home Medications Medication Instructions Recorded Confirmed Last Taken Type lisinopril 10 1 tab PO DAILY 09/17/22 06/12/23 06/11/23 History mg-hydrochlorothiazide 12.5 mg tablet omeprazole 10 mg capsule,delayed 20 mg PO DAILY 09/17/22 06/12/23 Unknown History release simvastatin 5 mg tablet 20 mg PO QPM 09/17/22 06/12/23 Unknown History naproxen 500 mg tablet 500 mg PO BID PRN Pain 06/10/23 06/12/23 06/05/23 History allopurinol 300 mg tablet 300 mg PO DAILY 06/12/23 06/12/23 Unknown History Exam Height,Weight and Vital Signs: Height 5 ft 5 in Weight 83.642 kg Vital Signs Temp Pulse Resp BP Pulse Ox O2 Del Method 06/12/23 11:15 98.4 F 85 16 157/87 H 98 Room Air Airway Mallampati Class: II TM Dist: >3cm Neck ROM: Limited Loose/Missing/Broken Teeth: Yes (Missing 1 tooth top front right. Denies broken or loose teeth) Heart: RRR Lungs: CTAB Assessment and Plan Assessment Anesthesia Assessment: Anesthesia Plan Discussed Final Anesthetic Review Family History of Problems with Anesthesia: No History of Problems with Anesthesia: No NPO: Yes ASA Class: II Final Preanesthetic Review: No Changes in Pt Med Stat, Meds/Allgs Chart Reviewed and Consent Obtained/Reviewed Patient Risk: Low Procedure Risk: Low Assessment/Block/Sedation in SS: Assess/Block/Sedation-SS Anesthetic Plan Anesthetic Plan: TIVA Disposition: Standard PACU
[2023-06-10 14:26] VITALS: BMI 30.1
[2023-06-12 11:15] VITALS: BP 157/87; PULSE 85; RESP 16; TEMP 36.9; O2SAT 98; BMI 30.7
[2023-06-12] MEDS: Lactated Ringers 1,000 ML 100 ML IVCONT (11:40)
[2023-06-12 12:48] VITALS: BP 120/54; PULSE 89; RESP 12; TEMP 36.3; O2SAT 94
--- NOTE | 2023-06-12 12:48 | P.BOP_ITS ---
Brief Operative Note Date of Service: 06/12/23 Pre-op diagnosis: Screening Post-op diagnosis: other (Diverticulosis) Procedure: Colonoscopy to the cecum Surgeon: Abel Alas MD Anesthesia: MAC Was an Audiovisual Lead Technician used for this Procedure?: No Estimated blood loss (mL): 0 Pathology: none sent Condition: stable Disposition: PACU
[2023-06-12 13:02] VITALS: BP 145/69; PULSE 83; RESP 16; O2SAT 97
--- NOTE | 2023-06-12 22:45 | OP_ITS ---
DATE OF SERVICE: 06/12/2023 SURGEON: Abel Alas MD INDICATIONS: Patient presents for evaluation of colorectal cancer screening. Full consent has been obtained from her for this, including risks of bleeding and perforation. PREOPERATIVE DIAGNOSIS: Colorectal cancer screening. POSTOPERATIVE DIAGNOSIS: PROCEDURE PERFORMED: Colonoscopy to the cecum. ESTIMATED BLOOD LOSS: COMPLICATIONS: ANESTHESIA: Monitored anesthesia care. ASSISTANTS: SPECIMENS: POSTOPERATIVE DIAGNOSES: Colorectal cancer screening, diverticulosis, and internal hemorrhoids. DESCRIPTION OF PROCEDURE: The patient was placed in the left lateral decubitus position. The digital rectal exam revealed no abnormalities. The Olympus video pediatric colonoscope was entered into the rectum advanced to the cecum with the assistance of abdominal wall pressure. Once in the cecum I did identify normal-appearing cecal pouch with appendiceal orifice a normal-appearing ileocecal valve. The entire cecum and ileocecal valve appeared normal. The scope was slowly withdrawn assessing all mucosal surfaces carefully. Preparation was excellent. I did not visualize any sign of polyps, colitis, nor angiodysplasia. There was a mild amount of sigmoid diverticulosis. In the rectum, scope was retroflexed, visualizing internal hemorrhoids, but no other pathology. The rectal mucosa appeared normal. Scope was straightened and withdrawn from the patient. She tolerated the procedure well and was returned to the recovery area in stable condition. IMPRESSION: 1. Sigmoid diverticulosis. 2. Small internal hemorrhoids. PLAN: Given today's negative exam and her age, I do not think she will need any further screening colonoscopies. She will otherwise see me on a p.r.n. basis. Abel Alas MD RMW/MODL / [id number] MTDD
== END 2023-06-12 13:50 | disposition home or self-care (01) ==
PROVIDERS: PCP Internal Medicine; Visit Provider Internal Medicine
PROC: 0DJD8ZZ Inspection of Lower Intestinal Tract, Via Natural or Artificial Opening Endoscopic (ICD-10-PCS; CPT 45378; principal; 2023-06-12 11:20)
DX: Z12.11 Encounter for screening for malignant neoplasm of colon (principal); K57.30 Diverticulosis of large intestine without perforation or abscess without bleeding; K64.8 Other hemorrhoids; K21.9 Gastro-esophageal reflux disease without esophagitis; I10 Essential (primary) hypertension; E78.00 Pure hypercholesterolemia, unspecified; D72.818 Other decreased white blood cell count; Z79.1 Long term (current) use of non-steroidal anti-inflammatories (NSAID); Z79.899 Other long term (current) drug therapy; Z88.0 Allergy status to penicillin; Z88.1 Allergy status to other antibiotic agents; Z98.890 Other specified postprocedural states
CPT/HCPCS: G0121; J2704

== ENCOUNTER 2023-07-10 09:53 | Outpatient (REF) | payer MEDICARE, SELFPAY ==
[2023-07-10 10:07] LABS: MANUAL DIFF FLAG NO
[2023-07-10 11:08] LABS: Basophils Percent Auto 0.8 % (0-2); Eosinophils Absolute Auto 0.1 X10*3/uL (0.0-0.4); Eosinophils Percent Auto 3.2 % (0-4); Hematocrit 41.7 % (37.0-47.0); Hemoglobin 13.6 g/dl (12.0-16.0); Imm Gran Abs Auto 0.01 X10*3/uL (0.00-0.03); Imm Gran Pct Auto 0.3 % (0.0-0.4); Lymphocytes Absolute Auto 1.7 X10*3/uL (1.2-4.9); Lymphocytes Percent Auto 44.5 % (20-40); Mean Corpuscular HGB Conc 32.6 g/dl (31.0-35.0); Mean Corpuscular Hemoglobin 30.3 pg (27.0-33.0); Mean Corpuscular Volume 92.9 fL (80.0-98.0); Mean Platelet Volume 9.9 fL (9.4-12.3); Monocytes Absolute Auto 0.5 X10*3/uL (0.1-1.2); Monocytes Percent Auto 13.4 % (2-11); Neutrophils Absolute Auto 1.4 x10*3/uL (2.0-8.3); Neutrophils Percent Auto 37.8 % (45-73); Platelet Count 169 X10*3/uL (160-400); Red Blood Count 4.49 X10*6/uL (4.20-5.50); Red Cell Distribution Width 15.2 % (11.0-16.0); White Blood Count 3.8 X10*3/uL (4.8-10.8)
[2023-07-10 11:34] LABS: Alanine Aminotransferase 13 U/L (0-31); Albumin Level 4.5 g/dL (3.5-5.0); Alkaline Phosphatase 73 U/L (39-117); Anion Gap 15 (12-20); Aspartate Amino Transferase 18 U/L (5-31); Bilirubin Total 0.9 mg/dL (0.0-1.0); Blood Urea Nitrogen 15 mg/dL (9-16); Calcium 10.4 mg/dL (8.4-10.2); Carbon Dioxide 26 mmol/L (22-29); Chloride 102 mmol/L (96-108); Cholesterol 201 mg/dL (<200); Estimated Glomerular Filt Rate > 60; Glucose Random 98 mg/dL (60-115); HDL Cholesterol 91 mg/dL (>40); LDL Cholesterol Calculated 92 mg/dL (<100); Potassium 3.5 mmol/L (3.3-5.1); Sodium 139 mmol/L (135-145); Total Protein 7.6 g/dL (6.5-8.0); Triglycerides 92 mg/dL (<150)
== END 2023-07-10 09:54 | disposition home or self-care (01) ==
LOC: HO.LAB 09:53
PROVIDERS: PCP Internal Medicine; Visit Provider Internal Medicine
DX: E78.00 Pure hypercholesterolemia, unspecified (principal); I10 Essential (primary) hypertension; M10.9 Gout, unspecified; M47.812 Spondylosis without myelopathy or radiculopathy, cervical region; Z63.4 Disappearance and death of family member
CPT/HCPCS: 36415; 80053; 80061; 84550; 85025

== ENCOUNTER 2024-01-07 08:41 | Outpatient (REF) | payer MEDICARE, SELFPAY ==
[2024-01-07 09:38] LABS: Alanine Aminotransferase 20 U/L (0-31); Albumin Level 4.6 g/dL (3.5-5.0); Alkaline Phosphatase 79 U/L (39-117); Anion Gap 16 (12-20); Aspartate Amino Transferase 23 U/L (5-31); Blood Urea Nitrogen 11 mg/dL (9-16); Calcium 10.1 mg/dL (8.4-10.2); Carbon Dioxide 24 mmol/L (22-29); Chloride 101 mmol/L (96-108); Cholesterol 179 mg/dL (<200); Estimated Glomerular Filt Rate > 60; Glucose Random 100 mg/dL (60-115); HDL Cholesterol 92 mg/dL (>40); LDL Cholesterol Calculated 67 mg/dL (<100); Phosphorus 3.2 mg/dL (2.7-4.5); Potassium 3.7 mmol/L (3.3-5.1); Sodium 137 mmol/L (135-145); Total Protein 7.3 g/dL (6.5-8.0); Triglycerides 100 mg/dL (<150)
[2024-01-07 09:57] LABS: Vitamin D 25-OH Total 36.8 ng/mL (>30)
[2024-01-07 10:46] LABS: Parathyroid Hormone Intact 94.2 pg/mL (8.7-77.1)
== END 2024-01-07 08:42 | disposition home or self-care (01) ==
LOC: HO.LAB 08:41
PROVIDERS: PCP Internal Medicine; Visit Provider Internal Medicine
DX: Z00.00 Encounter for general adult medical examination without abnormal findings (principal); E78.00 Pure hypercholesterolemia, unspecified; E83.52 Hypercalcemia; I10 Essential (primary) hypertension
CPT/HCPCS: 36415; 80053; 80061; 82306; 83970; 84100

== ENCOUNTER 2024-01-15 12:48 | Outpatient (REF) | payer MEDICARE, SELFPAY ==
--- NOTE | ~2024-01-15 | MM_ITS ---
EXAMINATION: MM SCREENING DIGITAL BREAST TOMOSYNTHESIS, BILATERAL CLINICAL INFORMATION: Screening. Asymptomatic. COMPARISON: Mammography: This study is compared with prior exams dating back to 2020. TECHNIQUE: Digital breast tomosynthesis is performed in both the craniocaudal and mediolateral oblique views along with computer-aided detection (CAD). Synthesized 2D images are generated from the tomosynthesis. FINDINGS: There are scattered areas of fibroglandular density (ACR BI-RADS breast composition Category b). In the low 12:00 position of the right breast, at its deep third, there are grouped calcifications which point additional mammographic imaging with magnification. In the left breast, there are no significant masses, abnormal calcifications, or other abnormalities. Previously evaluated calcifications and a normal intramammary lymph node in the left breast are present and unchanged. MM/MM tomosynthesis screening BI IMPRESSION: Grouped calcifications of the right breast warrant additional mammographic imaging of magnification. Benign findings left breast. ASSESSMENT: BI-RADS BI-RADS 0 - Incomplete: Needs additional Imaging. RECOMMENDATION: 1. Additional views of the right breast. 2. Targeted ultrasound if warranted after review of the additional views. 3. Radiology department staff will contact the patient for additional imaging. Additional Imaging required This examination should not preclude the clinical evaluation of a suspicious palpable abnormality. This patient's information was entered into a reminder system with a target due date for their next mammogram. Electronically signed by: Arabella Sebastian MD 02/13/2024 03:39 PM EDT
== END 2024-01-15 12:49 | disposition home or self-care (01) ==
LOC: HO.MAMMO 12:48
PROVIDERS: PCP Internal Medicine; Visit Provider Internal Medicine
DX: Z12.31 Encounter for screening mammogram for malignant neoplasm of breast (principal)
CPT/HCPCS: 77063; 77067

== ENCOUNTER → 2024-01-15 13:15 | Outpatient (BNV) | payer MEDICARE, SELFPAY | PROVIDERS: PCP Internal Medicine; Visit Provider Radiology Diagnostic Radiology | DX: Z12.31 Encounter for screening mammogram for malignant neoplasm of breast (principal) | CPT/HCPCS: 77063; 77067 ==

== ENCOUNTER 2024-03-02 14:50 | Outpatient (REF) | payer MEDICARE, SELFPAY ==
--- NOTE | ~2024-03-02 | MM_ITS ---
EXAMINATION: MM DIAGNOSTIC DIGITAL BREAST TOMOSYNTHESIS, RIGHT CLINICAL INFORMATION: Evaluate grouped microcalcifications seen low 12:00 axis right breast, posterior one third. COMPARISON: Mammography: Screening mammography 01/09/2022 and exams dating back to 2016. TECHNIQUE: Digital breast tomosynthesis is performed in the following views: Spot magnification 2-D right CC and ML views. Computer-aided diagnosis was used for this study. FINDINGS: There are scattered areas of fibroglandular density (ACR BI-RADS breast composition Category b). There are tightly grouped focus of rounded calcifications axis of the posterior right breast, which on magnification views and prior exams are associated with a 3 mm circumscribed mass. No significant pleomorphism, linear or casting forms. No suspicious distribution. In comparison with numerous prior exams, these have been present and slowly increasing in number over several years. The underlying small oval mass has been stable. 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 There are no suspicious findings. There are mild vascular calcifications. MM/MM added views RT IMPRESSION: -No findings suspicious for malignancy right breast. -Tiny focus of grouped punctate calcifications associated with 3 mm small oval mass are benign, related to degenerating fibroadenoma or variant. No further follow-up recommended. -Recommend the patient return to routine annual screening. ASSESSMENT: BI-RADS BI-RADS 2 - Benign Findings RECOMMENDATION: 1 year F/U This patient's information was entered into a reminder system with a target due date for their next mammogram. Electronically signed by: Jeffery Cervantes MD 03/02/2024 03:31 PM EDT
== END 2024-03-02 14:51 | disposition home or self-care (01) ==
LOC: HO.MAMMO 14:50
PROVIDERS: PCP Internal Medicine; Visit Provider Internal Medicine
DX: R92.1 Mammographic calcification found on diagnostic imaging of breast (principal)
CPT/HCPCS: 77065

== ENCOUNTER → 2024-03-02 15:00 | Outpatient (BNV) | payer MEDICARE, SELFPAY | PROVIDERS: PCP Internal Medicine; Visit Provider Radiology Diagnostic Radiology | DX: R92.1 Mammographic calcification found on diagnostic imaging of breast (principal) | CPT/HCPCS: 77065; G0279 ==

== ENCOUNTER 2024-06-16 13:14 | Outpatient (REF) | payer MEDICARE, SELFPAY ==
--- NOTE | 2024-06-16 13:18 | EMG_ITS ---
Chief complaint: Chronic bilateral hand numbness Reason for referral: Evaluate for Carpal Tunnel Syndrome Referred by: Dr. Skelton Procedure done: Bilateral upper extremities NCS Precautions and/or limitations: None The limb temperature was monitored continuously and remained between 32-36 degrees C during the performance of the NCS. Nerve Conduction Studies Anti Sensory Summary Table ?Stim Site NR Onset (ms) Norm Onset (ms) Peak (ms) Norm Peak (ms) O-P Amp (?V) Norm O-P Amp Site1 Site2 Delta-0 (ms) Dist (cm) Butch (m/s) Norm Butch (m/s) Left Median Anti Sensory (2nd Digit) Wrist ? 3.8 5.0 <3.6 11.7 >10 Wrist 2nd Digit 3.8 14.0 37 Right Median Anti Sensory (2nd Digit) Wrist ? 3.5 4.6 <3.6 20.4 >10 Wrist 2nd Digit 3.5 14.0 40 Right Radial Anti Sensory (Thumb) Forearm ? 1.2 1.7 <3.1 25.1 Forearm Thumb 1.2 0.0 Left Ulnar Anti Sensory (5th Digit) Wrist ? 1.1 3.4 <3.7 18.0 >15.0 Wrist 5th Digit 1.1 14.0 127 Right Ulnar Anti Sensory (5th Digit) Wrist ? 2.7 3.6 <3.7 22.1 >15.0 Wrist 5th Digit 2.7 14.0 52 Motor Summary Table ?Stim Site NR Onset (ms) Norm Onset (ms) O-P Amp (mV) Norm O-P Amp iAmp (mV) Amp (1st) (%) Site1 Site2 Delta-0 (ms) Dist (cm) Butch (m/s) Norm Butch (m/s) Left Median Motor (Abd Poll Brev) Wrist ? 5.5 <3.9 9.6 >4.5 11.4 100.0 Elbow Wrist 3.6 19.5 54 >45 Elbow ? 9.1 9.7 11.5 101.0 Right Median Motor (Abd Poll Brev) Wrist ? 4.5 <3.9 9.3 >4.5 12.0 100.0 Elbow Wrist 4.8 18.5 39 >45 Elbow ? 9.3 2.8 3.6 30.1 Left Ulnar Motor (Abd Dig Minimi) Wrist ? 3.0 <3.0 7.9 >5 9.7 100.0 B Elbow Wrist 3.3 18.5 56 >45 B Elbow ? 6.3 6.8 8.4 86.1 A Elbow B Elbow 1.8 10.0 56 >45 A Elbow ? 8.1 6.6 8.1 83.5 Right Ulnar Motor (Abd Dig Minimi) Wrist ? 2.9 <3.0 7.1 >5 8.6 100.0 B Elbow Wrist 3.4 20.0 59 >45 B Elbow ? 6.3 6.9 8.2 97.2 A Elbow B Elbow 1.2 10.0 83 >45 A Elbow ? 7.5 6.2 7.5 87.3 FINDINGS: Right median motor nerve showed prolonged distal latency, drop in amplitude below elbow and slow conduction velocity. (Possible distal biceps tear when she was a child.) Left median motor nerve showed prolonged distal latency, normal amplitude and normal conduction velocity. Bilateral median sensory nerve showed prolonged peak latency. All other nerves tested were within normal. IMPRESSION: 1. This is an abnormal study. 2. There is electrodiagnostic evidence for bilateral moderate-severe median neuropathy at the wrist, consistent with carpal tunnel syndrome. 3. There is no electrodiagnostic evidence for ulnar neuropathy. Thank you for your kind referral. Yaneth Reardon MD, BUZZ Board Certified, [place] [employer] and [employer] (ABPMR) Board Certified, [place] [employer] Electrodiagnostic [employer] (ABEM) CODIN [phone] MTDD
== END 2024-06-16 13:15 | disposition home or self-care (01) ==
LOC: HO.NEURO 13:14
PROVIDERS: PCP Internal Medicine
DX: R20.0 Anesthesia of skin (principal); R20.2 Paresthesia of skin
CPT/HCPCS: 95911

== ENCOUNTER → 2024-06-16 13:18 | Outpatient (BNV) | payer MEDICARE, SELFPAY | PROVIDERS: PCP Internal Medicine; Visit Provider Physical Medicine & Rehabilitation | DX: G56.03 Carpal tunnel syndrome, bilateral upper limbs (principal) | CPT/HCPCS: 95911 ==

== ENCOUNTER 2024-06-28 09:14 | Outpatient (AMB) | payer MEDICARE, SELFPAY ==
[2024-06-28 09:18] VITALS: BMI 30.6
--- NOTE | 2024-06-28 09:18 | MHC.OFFVIS ---
Vital Signs 06/28/24 09:18 Height 5 ft 5 in Weight 184 lb BMI 30.6 Intake Visit Reasons: OV- EMG review B/L hand pain Intake Note: Polina is a 79 year old right hand dominant female who presents today for an EMG review of her bilateral hands. Patient states her left hand is worse. Patient reports numbness and tingling that occurs some days, one and off. This is making it difficult to open and close jars and lids. She shares she has been wearing wrist braces at night for the past 20 years. She is also complaining of right middle finger locking and catching. Denies prior surgeries to her hands. EMG done on 06/16/2024 IMPRESSION: 1. This is an abnormal study. 2. There is electrodiagnostic evidence for bilateral moderate-severe median neuropathy at the wrist, consistent with carpal tunnel syndrome. 3. There is no electrodiagnostic evidence for ulnar neuropathy. Allergies penicillin V Allergy (Severe, Verified 06/28/24 09:18) angioedema Penicillins Allergy (Severe, Verified 06/28/24 09:18) TONGUE SWELLING caffeine [Cafergot] Allergy (Intermediate, Verified 06/28/24 09:18) Feeling of doom ergotamine [Cafergot] Allergy (Intermediate, Verified 06/28/24 09:18) Feeling of doom sucralfate [From CARAFATE] Allergy (Unknown, Verified 06/28/24 09:18) UNKNOWN erythromycin base Adverse Reaction (Intermediate, Verified 06/28/24 09:18) LETHARGY HPI HPI OV- EMG review B/L hand pain: Details: Polina is a 79 year old right hand dominant female who presents today for an EMG review of her bilateral hands. Patient states her left hand is worse. Patient reports numbness and tingling that occurs some days, one and off. This is making it difficult to open and close jars and lids. She shares she has been wearing wrist braces at night for the past 20 years. She is also complaining of right middle finger locking and catching. Denies prior surgeries to her hands. EMG done on 06/16/2024 IMPRESSION: 1. This is an abnormal study. 2. There is electrodiagnostic evidence for bilateral moderate-severe median neuropathy at the wrist, consistent with carpal tunnel syndrome. 3. There is no electrodiagnostic evidence for ulnar neuropathy. [facility] Medical History Migraines Microhematuria Esophagitis Hiatal hernia Hx of lipoma Gout History of benign schwannoma Hx of concussion Chronic leukopenia Acid reflux High blood pressure High cholesterol Surgical History History of thoracotomy History of esophagogastroduodenoscopy (EGD) H/O colonoscopy Hx of appendectomy History of tubal ligation Social History Alcohol intake: current Alcohol intake frequency: 0-2 drinks per day Patient Tobacco Use Status: Former Tobacco user Tobacco use type: Cigarette Years Smoked: 20 Current occupational status: retired Current occupation: rt hand Review of Systems Const All systems reviewed & are unremarkable except as noted in HPI and below Physical Exam Vital Signs: BMI result Body Mass Index 30.6 Extrem Other: Patient is alert, oriented, and in no acute distress. Neuro: Normal sensation of the tips of all digits of bilateral hands in the office today Vascular: Cap refill brisk Pain: Patient reports tenderness to palpation at the A1 corie of the right middle finger Range of motion of the bilateral hands painless ROM: Patient was able to make a closed fist and extend all digits of the bilateral hands fully and without difficulty Skin: No lacerations or abrasions. General: No ecchymosis, erythema, or evidence of infection. Psych: Appears grossly normal Affect normal Attitude cooperative Office Procedures Joint Inj/Aspir; Non-Pain Clin Trigger Finger Trigger Finger Middle Joint Injection: Right Middle Coding Procedure code (CPT) selection complete Assessment & Plan Assessment & Plan (1) Carpal tunnel syndrome on both sides: Code(s): G56.03 - Carpal tunnel syndrome, bilateral upper limbs Category: Medical (2) Trigger finger, right middle finger: Code(s): M65.331 - Trigger finger, right middle finger Category: Medical Plan 1. Carpal tunnel syndrome, bilateral I educated the patient about the condition. I discussed both operative and nonoperative treatment options. The patient would like to proceed with surgery. The risks and benefits of operative treatment were discussed with the patient and the patient wishes to proceed with surgery. These risks include, but are not limited to, risk of damage to blood vessels, nerves, tendons, infection, recurrence, incomplete relief of preoperative symptoms, persistent pain, possible need for further surgery, and the risks associated with regional blocks and/or anesthesia. Plan is to take the patient to the operating room at some point in the next few weeks for the following procedures: 1. Left carpal tunnel release under local anesthesia All of the preoperative paperwork including the consent was discussed today. All of the patient's questions were answered in the clinic today. The patient understands that they will be in contact with our surgical pathologist to discuss scheduling their procedure. Patient is educated that this time that if she is recovering well at her 2 week postoperative visit for left carpal tunnel syndrome, we can get her signed up for the right side at that time Patient denies diabetes, blood thinners, asthma, heart issues, lung issues, kidney issues, or current smoking. 2. Pre trigger tenosynovitis of right middle finger Patient is educated about this condition Patient is educated about the treatment options available Patient would like to proceed with steroid injection The risks and benefits of a steroid injection including but not limited to risk of damage to blood vessels, nerves, tendons, infection, skin bleaching, failure to improve symptoms, increased pain, and possible need for further injections or other intervention were discussed with the patient and the patient wishes to proceed with the steroid injection. Once consent was obtained, I sterilely prepped the area over the A1 corie of the flexor tendon sheath of the right middle finger. I then injected the flexor tendon sheath with a combination of 1 mL of dexamethasone (4mg/ml), and 1% lidocaine. The patient tolerated the procedure well with no complications. If the patient continues to have pain 4-6 weeks following this injection, they may call to schedule appointment to discuss alternative treatment options Follow-up prn Coding Level of Care Code Est Pt Level 4 (77317) Diagnoses Carpal tunnel syndrome on both sides G56.03 Trigger finger, right middle finger M65.331 CPT Codes Trigger Finger ([id number])
--- OUTSIDE RECORDS SUMMARY | 2024-06-28 09:41 | XMS_ITS ---
Author Organization [facility] Address [address] [place] [address] Care Team Providers Care Pay Per Click Strategist Name Role Phone Nadia Jacobson Primary Care Provider Unavailab Abel Robreson [phone] Encounters Encounter Location Date Provider Diagnosis [facility] [address] [place] [address] 06/28/2023 Abel Alas PLAN OF TREATMENT No Information
--- OUTSIDE RECORDS SUMMARY | 2024-06-28 09:41 | XMS_ITS ---
Author Organization [facility] Address [address] [place] [address] Care Team Providers Care Infectious Disease Physician Name Role Phone JesuskeiraNadia Primary Care Provider Unavailab Abel Roberson Unavailable [phone] REASON FOR VISIT screening PROBLEMS Problem Type ICD Code Onset Dates Problem Status W/U Status Risk SNOMED Code Notes Problem Diverticulosis of large intestine without perforation or abscess without bleeding (K57.30) Active confirmed Diverticul ar disease of colon ([id number]) Encounters Encounter Location Date Provider Diagnosis [facility] [address] [address], [place] [id number] 06/12/2023 Abel Alas Encounter for scre ening colonoscopy Z12.11 ; Diverticulosis of large intestine without perforation or abscess without bleeding K57.30 and Other hemorrhoids K64.8 ASSESSMENTS Encounter Date Diagnosis Assessment Notes Treatment Notes Treatment Clinical Notes 06/12/2023 Encounter for screening colonoscopy (ICD-10 - Z12.11) 06/12/2023 Diverticulosis of large intestine without perforation or abscess without bleeding (ICD-10 - K57.30) 06/12/2023 Other hemorrhoids (ICD-10 - K64.8) PLAN OF TREATMENT No Information
--- OUTSIDE RECORDS SUMMARY | 2024-06-28 09:42 | XMS_ITS ---
Author Organization [facility] Address [address] [place] [address] Care Team Providers Care Sexual Assault Nurse Name Role Phone [place] Nadia Primary Care Provider Abel De La Garza [phone] ALLERGIES Allergen (clinical drug ingredient) Drug/Non Drug Allergy documented on EMR Reaction Allergy Type Onset Date Status penicillamine Penicillamine Unknown Drug Allergy Active erythromycin Erythromycin Unknown Drug Allergy A ctive levetiracetam kappra (uncoded) Unknown Allergy Active REASON FOR VISIT Patient presents today for a COLON SCREENING MEDICATIONS Medication SIG (Take, Route, Frequency, Duration) Notes Start Date End Date Status Simvastatin 20 MG 1 tablet in the even ing Orally Active Lisinopril-hydroCHLOROthiaz adam 20-25 MG Orally Active Omeprazole 20 MG Orally Act lamont Naproxen 500 MG 1 tablet with food o r milk as needed Orally every 12 hrs Active PROBLEMS Problem Type ICD Code Onset Dates Problem Status W/U Status Risk SNOMED Code Notes Problem Colon cancer screening (Z12.11) Active confirmed 444555684 Problem Preprocedural examination (Z01.818) Active confirmed 645802833616413 VITAL SIGNS BMI 30.12 kg/m2 05/12/2023 Blood pressure systolic 00 mm Hg 05/12/20 23 Blood pressure diastolic 00 mm Hg 023 Height 65 in 05/12/2023 Temperature 97.0 degrees Fahrenheit 05/12/20 23 Weight 181 lbs 05/12/2023 Encounters Encounter Location Date Provider Diagnosis [facility] [address] [place] [address] 05/12/2023 Abel Alas Colon cancer screeni ng Z12.11 ; GERD without esophagitis K21.9 and Preprocedural examination Z01.818 ASSESSMENTS Encounter Date Diagnosis Assessment Notes Treatment Notes Treatment Clinical Notes 05/12/2023 Colon cancer screening (ICD-10 - Z12.11) 05/12/2023 GERD without esophagitis (ICD-10 - K21.9) 05/12/2023 Preprocedural examination (ICD-10 - Z01.818) PLAN OF TREATMENT Future Test Test Name Order Date COLONOSCOPY 05/12/2023 Next Appt Details Follow Up: prn, Reason: Progress Notes * Examination Category Sub-Category Detail Notes General Examination GENERAL APPEARANCE: pleasant , well nourished, well developed, in no acute distress EYES: sclera non-icteric NECK/THYROID: no cervical lymphade nopathy, neck supple HEART: S1, S2 normal LUNGS: clear to auscultatio n bilaterally ABDOMEN: normal bowel sounds, no guarding or rigidity, no hepatosplenomegaly, no masses palpable, soft, nontender, nondistended. NEUROLOGIC: alert and oriented SKIN: nonjaundiced, no spi tono angiomata. EXTREMITIES: no edema ORAL CAVITY: mucosa moist
--- OUTSIDE RECORDS SUMMARY | 2024-06-28 09:42 | XMS_ITS | Patient Health Record ---
Author Organization [facility] Address [address] [place] [address] Care Team Providers Care Equipment Processor Name Role Phone JseuskeiraNadia Primary Care Provider Abel De La Garza Unavailable [phone] ALLERGIES Allergen (clinical drug ingredient) Drug/Non Drug Allergy documented on EMR Reaction Allergy Type Onset Date Status penicillamine Penicillamine Unknown Drug Allergy Active erythromycin Erythromycin Unknown Drug Allergy A ctive levetiracetam kappra (uncoded) Unknown Allergy Active REASON FOR REFERRAL No Information MEDICATIONS Medication SIG (Take, Route, Frequency, Duration) Notes Start Date End Date Status Simvastatin 20 MG 1 tablet in the even ing Orally Active Lisinopril-hydroCHLOROthiaz adam 20-25 MG Orally Active Omeprazole 20 MG Orally Act lamont Naproxen 500 MG 1 tablet with food o r milk as needed Orally every 12 hrs Active IMMUNIZATIONS Vaccine Route Administration Date Status Comme nts Influenza Unknown 04/23/2021 Administered SOCIAL HISTORY Sex Assigned At : Social History Observation Description Sex Assigned At Unknown PROBLEMS Problem Type ICD Code Onset Dates Problem Status W/U Status Risk SNOMED Code Notes Problem Colon cancer screening (Z12.11) Active confirmed 910219172 Problem Diverticulosis of large intestine without perforation or abscess without bleeding (K57.30) Active confirmed Diverticul ar disease of colon (099093224) Problem Preprocedural examination (Z01.818) Active confirmed 455612018681019 Problem GERD without esophagitis (K21.9) Active confirmed Gastroesophagea l reflux disease (655128042) Encounters Encounter Location Date Provider Diagnosis [facility] [address] [place] [address] 06/28/2023 Abel Alas PLAN OF TREATMENT Future Test Test Name Order Date UPPER GI ENDOSCOPY 12/20/2013 COLONOSCOPY 05/12/2023 Insurance Providers Payer Name Payer Address Payer Phone Subscriber Number Group Number Insured Name Patient Relationship to Insured Coverage Start Date Coverage End Date MEDICARE OF [place] [address] [place] [address] [id number] JEWEL KELLY Self - patient is the insured MED[employer] ATTN CLAIMS [address] [place] [address] [phone] [id number] JEWEL KELLY Self - patient is the insured MEDICAL (GENERAL) HISTORY Medical History History ICD Code colonoscopy 09-01-2002-neg. except for a h yperplastic polyp Upper endoscopy 01-13-1997-ne g except for a small HH-no Conti's esophagus nor esophagitis Hypertension Chronic leukopenia Elevated cholesterol Denies [place],DM,CVA,Lung disease,renal dise ase Neg. 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 Tavarez
== END 2024-06-28 10:12 | disposition home or self-care (01) ==
PROVIDERS: PCP Internal Medicine
DX: G56.03 Carpal tunnel syndrome, bilateral upper limbs (principal); M65.331 Trigger finger, right middle finger
CPT/HCPCS: 20550; 99214

== ENCOUNTER → 2024-06-28 09:14 | Outpatient (BNVA) | payer MEDICARE, SELFPAY | PROVIDERS: PCP Internal Medicine | DX: G56.03 Carpal tunnel syndrome, bilateral upper limbs (principal); M65.331 Trigger finger, right middle finger | CPT/HCPCS: 20550; 99212; J1100; J2003 ==

== ENCOUNTER 2024-08-03 09:30 | Outpatient (REF) | payer MEDICARE, SELFPAY ==
--- OUTSIDE RECORDS SUMMARY | 2024-08-03 10:51 | XMS_ITS ---
Author Organization [facility] Address [address] [place] [address] Care Team Providers Care Aircraft Metalsmith Name Role Phone Nadia Jacobson Primary Care Provider UnavailAbel Kapoor [phone] Encounters Encounter Location Date Provider Diagnosis [facility] [address] [place] [address] 06/28/2023 Abel Alas Plan Of Treatment No Information Progress Notes * JEWEL HORTON MDOB:[birth year] (78 yo F)Acc No.[id number]:06/28/2023 Patient:?JEWEL HORTON :1945???Age:78 Y???Sex:Female Address:[address] [facility] [address] * true * Date:? Generated for Printi day/Reddy/eTransmitting on:?08/03/2024 10:51 AM EST
--- OUTSIDE RECORDS SUMMARY | 2024-08-03 10:51 | XMS_ITS ---
Author Organization [facility] Address [address] [place] [address] Care Team Providers Care Cotton Tipper Name Role Phone JesusspencerNadia Primary Care Provider Unavailab Abel Roberson Unavailable [phone] REASON FOR VISIT screening Problems Problem Type SNOMED Code ICD Code Onset Dates Problem Status W/U Status Risk Notes Problem Diverticular disease of colon (201311631) Diverticulosis of large intestine without perforation or abscess without bleeding (K57.30) Active confirmed Encounters Encounter Location Date Provider Diagnosis [facility] [address] [place], [place] [id number] 06/12/2023 Abel Alas Encounter for scre ening colonoscopy Z12.11 ; Diverticulosis of large intestine without perforation or abscess without bleeding K57.30 and Other hemorrhoids K64.8 Assessments Encounter Date Diagnosis (ICD Code) Assessment Notes Treatment Notes Treatment Clinical Notes Section Notes 06/12/2023 Encounter for screening colonoscopy (ICD-10 - Z12.11) 06/12/2023 Diverticulosis of large intestine without perforation or abscess without bleeding (ICD-10 - K57.30) 06/12/2023 Other hemorrhoids (ICD-10 - K64.8) Plan Of Treatment No Information Progress Notes * JEWEL HORTON MDOB:[birth year] (79 yo F)Acc No.[id number]:06/12/2023 COLON WITH MAC Patient:?JEWEL HORTON Provider:?Abel Alas MD :1945???Age:77 Y???Sex:Female D ate:06/12/2023 Address:[address] [place] [address], [facility] [id number] Pcp:Nadia Jacobson Subjective: * Chief Complaints: * ???1. Screening. * Medical History:? Objective: * Vitals:? Assessment: * Assessment: 1.?Encounter for screening c olonoscopy - Z12.11 (Primary)???2.?Diverticulosis of large intestine without perforation or abscess without bleeding - K57.30???3.?Other hemorrhoids - K64.8??? Plan: * Treatment: * Procedure Codes:?G0121 COLOR EC CNCR SCR;COLNSCPY NO HI RSK, 0529F INTRVL 3+YRS PTS CLNSCP DOCD, 0528F RCMND FLW-UP 10 YRS DOCD, Modifiers: 1P * * The named appointment provid er may or may not be the originator of this progress note, and it is not deemed complete until electronically signed by the appointment provider. Sign off status: Pending * Provider:?Abel Alas MD Date:? 024 Generated for Eduardo bernstein/Reddy/Gastonransmitting on:?08/03/2024 10:51 AM EST
--- OUTSIDE RECORDS SUMMARY | 2024-08-03 10:51 | XMS_ITS ---
Author Organization [facility] Address [address] [place] [address] Care Team Providers Care Domestic Helper Name Role Phone [place] Nadia Primary Care Provider Abel De La Garza [phone] Allergies Allergen (clinical drug ingredient) Drug/Non Drug Allergy documented on EMR Reaction Allergy Type Onset Date Status penicillamine Penicillamine Unknown Drug Allergy Active erythromycin Erythromycin Unknown Drug Allergy A ctive levetiracetam kappra (uncoded) Unknown Allergy Active REASON FOR VISIT Patient presents today for a COLON SCREENING Medications Medication SIG (Take, Route, Frequency, Duration) Notes Start Date End Date Status Simvastatin 20 MG 1 tablet in the even ing Orally Active Lisinopril-hydroCHLOROthiaz adam 20-25 MG Orally Active Omeprazole 20 MG Orally Act lamont Naproxen 500 MG 1 tablet with food o r milk as needed Orally every 12 hrs Active Problems Problem Type SNOMED Code ICD Code Onset Dates Problem Status W/U Status Risk Notes Problem 329423985 Colon cancer screening (Z12.11) Active confirmed Problem 426332441121408 Preprocedural examination (Z01.818) Active confirmed Vital Signs Temperature 97.0 degrees Fahrenheit 05/12/20 23 Blood pressure systolic 00 mm Hg 05/12/20 23 Blood pressure diastolic 00 mm Hg 023 Height 65 in 05/12/2023 Weight 181 lbs 05/12/2023 BMI 30.12 kg/m2 05/12/2023 Encounters Encounter Location Date Provider Diagnosis [facility] [address] [place] [address] 05/12/2023 Abel Alas Colon cancer screeni ng Z12.11 ; GERD without esophagitis K21.9 and Preprocedural examination Z01.818 Assessments Encounter Date Diagnosis (ICD Code) Assessment Notes Treatment Notes Treatment Clinical Notes Section Notes 05/12/2023 Colon cancer screening (ICD-10 - Z12.11) Overall, Polina appears quite well. Her reflux remains very stable on her current regimen of her daily omeprazole. She is not having any new nor worrisome symptoms to suggest the need for another upper endoscopy at this time. I did advise her to continue her omeprazole for symptomatic relief of reflux, as well as to watch her diet and weight since those may both play a role in her reflux symptoms. I did recommend a followup colonoscopy for further screening given her age, good clinical appearance, and her last exam being 10 years ago. We did review the rationale for that in regard to colon cancer prevention. Full consent is obtained for this, including risks of bleeding and perforation. The procedure will be done with monitored anesthesia care. Polina was comfortable with this plan. Thank you again for allowing me to participate in Polina's care. I shall continue to keep you advised of her progress. 05/12/2023 GERD without esophagitis (ICD-10 - K21.9) Overall, Polina appears quite well. Her reflux remains very stable on her current regimen of her daily omeprazole. She is not having any new nor worrisome symptoms to suggest the need for another upper endoscopy at this time. I did advise her to continue her omeprazole for symptomatic relief of reflux, as well as to watch her diet and weight since those may both play a role in her reflux symptoms. I did recommend a followup colonoscopy for further screening given her age, good clinical appearance, and her last exam being 10 years ago. We did review the rationale for that in regard to colon cancer prevention. Full consent is obtained for this, including risks of bleeding and perforation. The procedure will be done with monitored anesthesia care. Rajeshkeira was comfortable with this plan. Thank you again for allowing me to participate in Polina's care. I shall continue to keep you advised of her progress. 05/12/2023 Preprocedural examination (ICD-10 - Z01.818) Overall, Polina appears quite well. Her reflux remains very stable on her current regimen of her daily omeprazole. She is not having any new nor worrisome symptoms to suggest the need for another upper endoscopy at this time. I did advise her to continue her omeprazole for symptomatic relief of reflux, as well as to watch her diet and weight since those may both play a role in her reflux symptoms. I did recommend a followup colonoscopy for further screening given her age, good clinical appearance, and her last exam being 10 years ago. We did review the rationale for that in regard to colon cancer prevention. Full consent is obtained for this, including risks of bleeding and perforation. The procedure will be done with monitored anesthesia care. Polina was comfortable with this plan. Thank you again for allowing me to participate in Polina's care. I shall continue to keep you advised of her progress. Plan Of Treatment Future Test Test Name Order Date COLONOSCOPY 05/12/2023 Next Appt Details Follow Up: prn, Reason: Progress Notes * POLINA OHRTON MDOB:[birth year] (78 yo F)Acc No.[id number]:05/12/2023 Progress Notes Patient:?KEIRAAMAURI POLINA Michelle Provider:?Abel Alas MD :1945???Age:77 Y???Sex:Female D ate:05/12/2023 Address:[address] [place], [place] [id number] Pcp:Nadia Jacobson Subjective: * Chief Complaints: * ???Patient presents today fo r a COLON SCREENING * HPI: ???incontinence:? I saw Polina in followup today in regard to her underlying history of chronic gastroesophageal reflux and discussion of colorectal cancer screening. ?I last saw Polina in October of 2021. At that time we had reviewed her history of reflux with an associated hiatal hernia. She has been on her omeprazole for many years with good relief of her reflux symptoms. She continues to do well on that and denies any significant heartburn, dysphagia, anorexia, nausea, nor Vomiting. She denies any early satiety, abdominal pain, jaundice, nor unintentional weight loss. She reports her bowel movements remain regular without any hematochezia nor melena. Her last screening colonoscopy in 2013 was negative for any tubular adenomas. ?Laboratories from last month revealed a hemoglobin of 13.5 with a normal MCV, normal chemistries and renal function, and normal LFTs. * ROS:?General/Constitutional:?Change in appetite?denies.?Chills?denies.?Fatigue?denies.?Ophthalmologic:?Patient denies? Negative..?ENT:?Patient denies?Negative..?Respiratory:?Patient denies?No coughing/hemoptysis..?Cardiovascular:?Patient denies? No chest pain/orthopnea..?Gastrointestinal:?Comments?See HPI for details.?Genitourinary:?Patient denies? No dysuria/hematuria..?Musculoskeletal:?Patient denies? No specific arthralgias/myalgias..?Skin:?Patient denies?No rash/pruritus..?Neurologic:?Patient denies? No headaches/seizures..?Psychiatric:?Patient denies?Negative..? * Medical History:? 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 Tavarez * Hospitalization/Major Diagno stic Procedure:?No Hospitalization History. * Family History:?Father: dece ased, massive stroke .?Mother: , diagnosed with Heart disease.?Siblings: diagnosed with HTN (hypertension), Heart disease.? There is no family history of G.I. malignancy. * Social History:?Tobacco Use:?Tobacco Use/Smoking?Are you a: nonsmoker.?Drugs/Alcohol:?Alcohol Screen?Points: 3, Interpretation: Positive.?Miscellaneous:?Marital status: as of 08/2021. Occupation: Retired. ???Nonsmoker >25yrs; occ. alcohol. * Medications:?TakingNaproxen 500 MG Tablet 1 tablet with food or milk as needed Orally every 12 hrsOmeprazole 20 MG Tablet Delayed Release Orally Lisinopril-hydroCHLOROthiazide 20-25 MG Tablet Orally Simvastatin 20 MG Tablet 1 tablet in the evening Orally Taking Naproxen 500 MG Tablet 1 tablet with food or milk as needed Orally every 12 hrsTaking Omeprazole 20 MG Tablet Delayed Release Orally Taking Lisinopril-hydroCHLOROthiazide 20-25 MG Tablet Orally Taking Simvastatin 20 MG Tablet 1 tablet in the evening Orally DiscontinuedCitracal Calcium+D 600-40-500 MG-MG-UNIT Tablet Extended Release 24 Hour Orally FiberCon Medication List reviewed and reconciled with the patientDiscontinued Citracal Calcium+D 600-40-500 MG-MG-UNIT Tablet Extended Release 24 Hour Orally Discontinued FiberCon Medication List reviewed and reconciled with the patient * Allergies:?PenicillamineEryt hromycinkapprayes[Allergies Verified] Objective: * Vitals:?Wt: 181 lbs, Ht: 65 in, BMI:30.12 Index, BP: 00/00 mm Hg, Temp: 97.0. * Examination: ???General Examination: ?GENERAL APPEARANCE:?pleasant, well nourished, well developed, in no acute distress.?EYES:?sclera non-icteric.?ORAL CAVITY:?mucosa moist.?NECK/THYROID:?no cervical lymphadenopathy, neck supple.?SKIN:?nonjaundiced, no spider angiomata..?HEART:?S1, S2 normal.?LUNGS:?clear to auscultation bilaterally.?ABDOMEN:?normal bowel sounds, no guarding or rigidity, no hepatosplenomegaly, no masses palpable, soft, nontender, nondistended..?EXTREMITIES:?no edema.?NEUROLOGIC:?alert and oriented.? Assessment: * Assessment: 1.?GERD without esophagitis - K21.9 (Primary)?2.?Colon cancer screening - Z12.11?3.?Preprocedural examination - Z01.818? Overall, Polina appears quite well. Her reflux remains very stable on her current regimen of her daily omeprazole. She is not having any new nor worrisome symptoms to suggest the need for another upper endoscopy at this time. I did advise her to continue her omeprazole for symptomatic relief of reflux, as well as to watch her diet and weight since those may both play a role in her reflux symptoms. I did recommend a followup colonoscopy for further screening given her age, good clinical appearance, and her last exam being 10 years ago. We did review the rationale for that in regard to colon cancer prevention. Full consent is obtained for this, including risks of bleeding and perforation. The procedure will be done with monitored anesthesia care. Polina was comfortable with this plan. Thank you again for allowing me to participate in Polina's care. I shall continue to keep you advised of her progress. Plan: * Treatment: * Procedure Codes:?1036F TOBAC CO NON-[id number] BP SCR NOT PRFRM REC REASON NOS * Preventive Medicine:? ??Counseling:?Care goal follow-up plan:?Above Normal BMI Follow-up?Giving encouragement to exercise,?BMI management provided?Yes.? ??Urinary Incontinence:?Urinary Incontinence?Assessment:?Absent,?Plan of care documented:?Yes,?Type of plan of care:?Lifestyle interventions.? * Follow Up:?prn * * Sign off status: Completed true * Provider:?Abel Alas MD Date:? 023 Generated for Eduardo bernstein/Reddy/Alexitting on:?08/03/2024 10:51 AM EST History and Physical Notes * HPI (History of Present Illness) Category Sub-Category Detail Notes Category Not es incontinence I saw Polina in followup today in regard to her underlying history of chronic gastroesophageal reflux and discussion of colorectal cancer screening. I last saw Polina in October of 2021. At that time we had reviewed her history of reflux with an associated hiatal hernia. She has been on her omeprazole for many years with good relief of her reflux symptoms. She continues to do well on that and denies any significant heartburn, dysphagia, anorexia, nausea, nor Vomiting. She denies any early satiety, abdominal pain, jaundice, nor unintentional weight loss. She reports her bowel movements remain regular without any hematochezia nor melena. Her last screening colonoscopy in 2012 was negative for any tubular adenomas. Laboratories from last month revealed a hemoglobin of 13.5 with a normal MCV, normal chemistries and renal function, and normal LFTs. Examination Category Sub-Category Detail Notes Category Not es General Examination GENERAL APPEARANCE: pleasant , well [...]
--- OUTSIDE RECORDS SUMMARY | 2024-08-03 10:51 | XMS_ITS | Patient Health Record ---
Author Organization [facility] Address [address] [place] [address] Care Team Providers Care Pharmacy Student Name Role Phone Nadia Jacobson Primary Care Provider Abel De La Garza Unavailable [phone] Allergies Allergen (clinical drug ingredient) Drug/Non Drug Allergy documented on EMR Reaction Allergy Type Onset Date Status penicillamine Penicillamine Unknown Drug Allergy Active erythromycin Erythromycin Unknown Drug Allergy A ctive levetiracetam kappra (uncoded) Unknown Allergy Active Reason For Referral No Information Medications Medication SIG (Take, Route, Frequency, Duration) Notes Start Date End Date Status Simvastatin 20 MG 1 tablet in the even ing Orally Active Lisinopril-hydroCHLOROthiaz adam 20-25 MG Orally Active Omeprazole 20 MG Orally Act lamont Naproxen 500 MG 1 tablet with food o r milk as needed Orally every 12 hrs Active Immunizations Vaccine Route Administration Date Status Comme nts Influenza Unknown 04/23/2021 Administered Problems Problem Type SNOMED Code ICD Code Onset Dates Problem Status W/U Status Risk Notes Problem 905456785 Colon cancer screening (Z12.11) Active confirmed Problem Diverticular disease of colon (058296024) Diverticulosis of large intestine without perforation or abscess without bleeding (K57.30) Active confirmed Problem 713441331397920 Preprocedural examination (Z01.818) Active confirmed Problem Gastroesophageal reflux disease (799725243) GERD without esophagitis (K21.9) Active confirmed Plan Of Treatment Future Test Test Name Order Date UPPER GI ENDOSCOPY 12/20/2013 COLONOSCOPY 05/12/2023 Insurance Providers Payer Name Payer Address Payer Phone Subscriber Number Group Number Insured Name Patient Relationship to Insured Coverage Start Date Coverage End Date MEDICARE OF [place] [address] [place] [address] [phone] [id number] KATIE ARNULFOJEWEL Hurtado Self - patient is the insured MEDEX ATTN CLAIMS [address] [place] [address] [id number] JEWEL KELLY Self - patient is the insured Medical (General) History Medical History History ICD Code colonoscopy 09-01-2002-neg. except for a h yperplastic polyp Upper endoscopy 01-13-1997-ne g except for a small HH-no Conti's esophagus nor esophagitis Hypertension Chronic leukopenia Elevated cholesterol Denies NH,DM,CVA,Lung disease,renal dise ase Neg. screening colonoscopy in 12/2012 EGD 12/2013 small to moderate -sized hiatal hernia, no esophagitis, no Conti's Concussion from a fall in in 10/18 23 Surgical History Surgery Date(Month/Year) tubal ligation and ovarian cyst appendectomy [facility]
[2024-08-03 12:36] LABS: Alanine Aminotransferase 24 U/L (0-31); Albumin Level 4.3 g/dL (3.5-5.0); Alkaline Phosphatase 93 U/L (39-117); Anion Gap 15 (12-20); Aspartate Amino Transferase 32 U/L (5-31); Bilirubin Total 0.7 mg/dL (0.0-1.0); Blood Urea Nitrogen 10 mg/dL (9-16); Carbon Dioxide 21 mmol/L (22-29); Chloride 106 mmol/L (96-108); Cholesterol 172 mg/dL (<200); Estimated Glomerular Filt Rate > 60; Glucose Random 84 mg/dL (60-115); HDL Cholesterol 80 mg/dL (>40); LDL Cholesterol Calculated 71 mg/dL (<100); Phosphorus 3.1 mg/dL (2.7-4.5); Potassium 3.8 mmol/L (3.3-5.1); Sodium 138 mmol/L (135-145); Total Protein 7.6 g/dL (6.5-8.0); Triglycerides 109 mg/dL (<150)
[2024-08-03 12:41] LABS: Parathyroid Hormone Intact 79.4 pg/mL (8.7-77.1)
== END 2024-08-03 09:31 | disposition home or self-care (01) ==
LOC: HO.LAB 09:30
PROVIDERS: PCP Internal Medicine; Visit Provider Internal Medicine
DX: E21.0 Primary hyperparathyroidism (principal); E78.00 Pure hypercholesterolemia, unspecified; I10 Essential (primary) hypertension
CPT/HCPCS: 36415; 80053; 80061; 83970; 84100

== ENCOUNTER 2024-08-16 08:33 | Outpatient (REF) | payer MEDICARE, SELFPAY ==
--- NOTE | ~2024-08-16 | XR_ITS ---
EXAMINATION: XR HAND, RIGHT CLINICAL INFORMATION: M79.641 - Pain in right hand COMPARISON: None available. TECHNIQUE: PA, lateral, and oblique views of the right hand. FINDINGS: Degenerative changes in the first and second carpometacarpal joints. Asymmetric joint space narrowing in the distal interphalangeal joints of the digits more pronounced in the fifth digit. No acute cortical disruption or malalignment. No subcutaneous edema. No metallic or radiopaque foreign body. XR/XR hand RT min 3V IMPRESSION: No acute fracture or dislocation. Osteoarthrosis. Electronically signed by: Ricco Kinney MD 08/16/2024 10:08 AM EDT
== END 2024-08-16 08:34 | disposition home or self-care (01) ==
LOC: HO.HOSX 08:33
PROVIDERS: Visit Provider Orthopaedic Surgery
DX: M79.641 Pain in right hand (principal); G56.03 Carpal tunnel syndrome, bilateral upper limbs; M65.331 Trigger finger, right middle finger
CPT/HCPCS: 73130; 99212

== ENCOUNTER 2024-08-16 08:55 | Outpatient (AMB) | payer MEDICARE, SELFPAY ==
[2024-08-16 09:10] VITALS: BMI 30.6
--- NOTE | 2024-08-16 09:10 | A.OFFVIS_ITS ---
Vital Signs 08/16/24 09:10 Height 5 ft 5 in Weight 184 lb BMI 30.6 Intake Visit Reasons: OV RT middle finger pain and stiffness Intake Note: Polina is a 79 year old right hand dominant female who presents today for a follow up visit for her right middle finger pain and stiffness. Patient was treated by Peña Chairez on 06/28/24 for pre-trigger tenosynovitis of right mid dle finger and received an A1 corie of the flexor tendon sheath of the right middle finger injection. States injection did not help. She is having left hand CTR on 09/22/24 and would like to switch to have her right hand CTR and add her right middle finger for a trigger release for the. Allergies penicillin V Allergy (Severe, Verified 08/16/24 09:18) angioedema Penicillins Allergy (Severe, Verified 08/16/24 09:18) TONGUE SWELLING caffeine [Cafergot] Allergy (Intermediate, Verified 08/16/24 09:18) Feeling of doom ergotamine [Cafergot] Allergy (Intermediate, Verified 08/16/24 09:18) Feeling of doom sucralfate [From CARAFATE] Allergy (Unknown, Verified 08/16/24 09:18) UNKNOWN erythromycin base Adverse Reaction (Intermediate, Verified 08/16/24 09:18) LETHARGY HPI HPI OV RT middle finger pain and stiffness: Details: Polina is a 79 year old right hand dominant woman who returns for her right middle trigger finger, S/P injection by Peña, 06/28/24. She says the injection was not helpful and she would like to discuss surgery. She says she is scheduled for a right carpal tunnel release on 09/22/24. She is actually scheduled for a left carpal tunnel release that day [facility] Medical History Migraines Microhematuria Esophagitis Hiatal hernia Hx of lipoma Gout History of benign schwannoma Hx of concussion Chronic leukopenia Acid reflux High blood pressure High cholesterol Surgical History History of thoracotomy History of esophagogastroduodenoscopy (EGD) H/O colonoscopy Hx of appendectomy History of tubal ligation Social History (Reviewed 08/16/24 @ 09:18 by CANDI Luke Alcohol intake: current Alcohol intake frequency: 0-2 drinks per day Patient Tobacco Use Status: Former Tobacco user Tobacco use type: Cigarette Years Smoked: 20 Current occupational status: retired Current occupation: rt hand Review of Systems Const All systems reviewed & are unremarkable except as noted in HPI and below Physical Exam Vital Signs: BMI result Body Mass Index 30.6 Const General: cooperative, healthy appearing and no acute distress Orientation/consciousness: patient oriented x3 HEENT Head: Yes normocephalic and Yes atraumatic Eyes EOM: EOMs intact bilaterally Resp Effort & Inspection: normal respiratory effort and able to speak in complete sentences Cardio Jugular venous distension: no JVD Skin General skin exam: turgor normal Rashes: no rashes Neuro General: patient oriented x3 Extrem Other: Evaluation of Right Upper Extremity: The patient is alert, oriented, and in no acute distress Neuro: Median, Ulnar, Radial nerves motor and sensory intact and sensation is normal to the tips of all digits No thenar or intrinsic wasting Good APB muscle belly firing and good finger cross Vascular: Cap refill brisk ROM: She can make a fist and extend all of her digits. She has visible locking and catching of the right middle finger, as well as tenderness over the A1 corie of the right middle finger. She also has a small palpable bump over the A1 corie that may represent a retinacular cyst. Skin: No lacerations or abrasions. General: No Ecchymosis. No Erythema or evidence of infection. Nerve Conduction Study: IMPRESSION: 1. This is an abnormal study. 2. There is electrodiagnostic evidence for bilateral moderate-severe median neuropathy at the wrist, consistent with carpal tunnel syndrome. 3. There is no electrodiagnostic evidence for ulnar neuropathy. Yaneth Reardon MD, BUZZ 06/16/24 Psych Appearance: grossly normal Affect: normal affect Attitude: cooperative Assessment & Plan Assessment & Plan (1) Carpal tunnel syndrome on both sides: Code(s): G56.03 - Carpal tunnel syndrome, bilateral upper limbs Category: Medical (2) Trigger finger, right middle finger: Code(s): M65.331 - Trigger finger, right middle finger Category: Medical Plan Assessment & Plan: 1. Right middle finger trigger finger, With persistent locking S/P injection Date of injection: 06/28/24 2. Right carpal tunnel syndrome, moderate-severe Symptoms intermittent, but daily, worse at night I educated her about these conditions I discussed operative and non-operative treatment options The patient would like to proceed with surgery The risks and benefits of operative treatment were discussed with the patient and the patient wishes to proceed with surgery. These risks include, but are not limited to risk of damage to blood vessels, nerves, tendons, infection, recurrence, incomplete relief of preoperative symptoms, persistent pain, possible need for further surgery and the risks associated with regional blocks and anesthesia. The plan is to take the patient to the operating room sometime on 09/22/24 for the following procedures: 1. Right carpal tunnel release, under local 2. Right middle finger trigger release, under local All of the preoperative paperwork including the consent was reviewed today. All the patient's questions were answered. The patient understands that they will be contacted by our maintenance scheduler soon to schedule this procedure She denies Diabetes, blood thinners, asthma, heart, lung, kidney issues 3. Left carpal tunnel syndrome, moderate-severe Symptoms intermittent, but daily, worse at night We will discuss treatment options when she has recovered from her right side surgery 4. Left trigger thumb, S/P injection Date of injection: 09/17/22 Resolved, no complaints Scribed for Ayla Skelton MD by Anurag Abraham, medical records assistant, on 08/16/24 at 9:25 AM, EST. Orders: Orders XR hand RT min 3V Today M79.641 - Pain in right hand Coding Level of Care Code Est Pt Level 4 (85463) Diagnoses Carpal tunnel syndrome on both sides G56.03 Trigger finger, right middle finger M65.331
== END 2024-08-16 09:35 | disposition home or self-care (01) ==
LOC: HO.HOS 08:55
PROVIDERS: PCP Internal Medicine; Visit Provider Orthopaedic Surgery
DX: G56.03 Carpal tunnel syndrome, bilateral upper limbs (principal); M65.331 Trigger finger, right middle finger
CPT/HCPCS: 99214

== ENCOUNTER → 2024-08-16 08:58 | Outpatient (BNV) | payer MEDICARE, SELFPAY | PROVIDERS: Visit Provider Radiology Diagnostic Radiology | DX: M79.641 Pain in right hand (principal) | CPT/HCPCS: 73130 ==

== ENCOUNTER 2024-08-29 10:31 | Day surgery (SDC) | payer MEDICARE, SELFPAY ==
[2024-08-26 14:06] VITALS: BMI 30.8
[2024-08-29 11:31] VITALS: BMI 31.5
--- NOTE | 2024-08-29 13:07 | MHC.SHP ---
Pre-Procedural Eval Section A - 24 Hr Update-Section A only Date of Service: 08/29/24 The patient is an INPATIENT: No Changes since office visit: No Cold of Flu in the past 2 weeks, No New Medical Problems, No Changes in Medication and No Patient answered all questions The patient has been examined within 24 hours of the surgical procedure. The History & Physical has been completed within 30 days and I have reviewed it.: Yes Section B - Complete if H&P > 30 days Chief Complaint: Carpal tunnel syndrome, right upper limb trigger f Allergies: Allergies Allergy/AdvReac Type Severity Reaction Status Date / Time penicillin V Allergy Severe angioedema Verified 08/29/24 11:27 Penicillins Allergy Severe TONGUE Verified 08/29/24 11:27 SWELLING caffeine [Cafergot] Allergy Intermediate Feeling of Verified 08/29/24 11:27 doom ergotamine [Cafergot] Allergy Intermediate Feeling of Verified 08/29/24 11:27 doom sucralfate [From CARAFATE] Allergy Unknown UNKNOWN Verified 08/29/24 11:27 erythromycin base AdvReac Intermediate LETHARGY Verified 08/29/24 11:27 Plan Diagnosis/Plan: Unchanged I have reviewed the history and physical and performed a pertinent physical examination on my patient. No changes have occurred unless specified. Time Spent With Patient Time: Total time managing care of this patient today ____ minutes.
--- NOTE | 2024-08-29 13:09 | W.PM.OPN ---
Operative Note Operative Note Date of Service: 08/29/24 Narrative: Preop diagnosis: 1. Right Carpal tunnel syndrome 2. Right middle finger trigger finger Postop diagnosis: same Procedure: 1. Right Carpal tunnel release 2. Right middle finger trigger release Surgeon: Ayla Skelton MD Viscose Cellar Charge Hand: None Anesthesia: local block using 1% lidocaine with epinephrine Findings: Thickened transverse carpal ligament. EBL: Less than 5 mL Specimens: None Complications: None Disposition: Brought to recovery room in stable condition Plan: Follow-up for 10-14 days for wound check and suture removal Indications: The patient is 79 years old, with right carpal tunnel syndrome and a right middle finger trigger finger that have been unresponsive to nonoperative management. The risks and benefits of operative treatment including but not limited to risk of damage to blood vessels, nerves, tendons, infection, persistent pain, persistent symptoms, or possible need for additional surgery were discussed with the patient and the patient wishes to proceed with surgery. Procedure: Once consent was obtained a local block was performed using a combination of 1% lidocaine with epinephrine. The patient was then brought back to the operating suite and placed on the operative table in supine position. The right upper extremity was prepped and draped in a standard surgical fashion. Once assured that we had a good block, a 1.5 cm oblique incision was made centered over the A1 corie of the right middle finger . The incision was made through the skin to the subcutaneous tissues using a #15 blade. Careful dissection was made down to the level of the A1 corie using tenotomy scissors, with care being taken to protect the nearby neurovascular structures. A longitudinal incision was made in the A1 corie 1st using a #15 blade, then using tenotomy scissors under direct visualization. The A1 corie was noted to be thickened. Following our A1 corie release, we no longer saw any locking or catching of the digit with flexion and extension. Once assured that we had a good block, a 2.0 cm longitudinal incision was made centered over the carpal tunnel. The incision was made through the skin to the subcutaneous tissues using a #15 blade. Dissection was made down to the level of the transverse carpal ligament with care being taken to protect the palmar cutaneous nerve. Once the transverse carpal ligament was clearly visualized, a longitudinal incision was made in the transverse carpal ligament 1st using a #15 blade, then using tenotomy scissors under direct visualization. Care was taken to look for and protect the motor branch of the median nerve when seen in this area. Once satisfied with our carpal tunnel release the wound was copiously irrigated with normal saline and hemostasis was obtained with a brief period of local pressure. The skin edges were reapproximated with some 5.0 nylon suture material and a sterile dressing was applied. The patient appears to have tolerated the procedure well and with no complications. All digits were well vascularized at the conclusion of the case.
[2024-08-29 14:32] VITALS: BP 150/70; PULSE 99; RESP 18; O2SAT 100
== END 2024-08-29 14:34 | disposition home or self-care (01) ==
PROVIDERS: PCP Internal Medicine; Visit Provider Orthopaedic Surgery
PROC: (CPT 64721; principal; 2024-08-29 12:40)
PROC: (CPT 26055; 2024-08-29 12:40)
DX: M65.331 Trigger finger, right middle finger (principal); M79.644 Pain in right finger(s); M25.641 Stiffness of right hand, not elsewhere classified; G56.01 Carpal tunnel syndrome, right upper limb; I10 Essential (primary) hypertension; E78.00 Pure hypercholesterolemia, unspecified; D72.818 Other decreased white blood cell count; Z88.0 Allergy status to penicillin; Z88.1 Allergy status to other antibiotic agents; Z88.8 Allergy status to other drugs, medicaments and biological substances; Z98.890 Other specified postprocedural states; Z87.891 Personal history of nicotine dependence
CPT/HCPCS: 64721; 26055; J0171; J2003

== ENCOUNTER → 2024-08-29 10:31 | Outpatient (BNV) | payer MEDICARE, SELFPAY | PROVIDERS: PCP Internal Medicine; Visit Provider Orthopaedic Surgery | DX: G56.01 Carpal tunnel syndrome, right upper limb (principal); M65.331 Trigger finger, right middle finger | CPT/HCPCS: 26055; 64721 ==

== ENCOUNTER 2024-09-09 09:12 | Outpatient (AMB) | payer MEDICARE, SELFPAY ==
--- NOTE | 2024-09-09 09:14 | A.OFFVIS_ITS ---
Vital Signs 09/09/24 09:26 Height 5 ft 5 in Weight 189 lb BMI 31.4 Intake Visit Reasons: PO RT CTR/MF trigger 08/29/24 AR Intake Note: Polina is a 79 year old right hand dominant female who presents today for a post operative visit s/p right carpal tunnel release and right middle finger trigger release, DOS: 08/29/[address] Ayla Skelton. Patient reports burning sensation from her wrist to her middle finger trigger release incision. Denies numbness, tingling, pain. Sutures removed in office today and steri strips applied. Allergies penicillin V Allergy (Severe, Verified 09/09/24 09:26) angioedema Penicillins Allergy (Severe, Verified 09/09/24 09:26) TONGUE SWELLING caffeine [Cafergot] Allergy (Intermediate, Verified 09/09/24 09:26) Feeling of doom ergotamine [Cafergot] Allergy (Intermediate, Verified 09/09/24 09:26) Feeling of doom sucralfate [From CARAFATE] Allergy (Unknown, Verified 09/09/24 09:26) UNKNOWN erythromycin base Adverse Reaction (Intermediate, Verified 09/09/24 09:26) LETHARGY HPI HPI PO RT CTR/MF trigger 08/29/24 AR: Details: Polina is a 79 year old right hand dominant female who presents today for a post operative visit s/p right carpal tunnel release and right middle finger trigger release, DOS: 08/29/[address] Ayla Skelton. Patient reports burning sensation from her wrist to her middle finger trigger release incision. Denies numbness, tingling, pain. Sutures removed in office today and steri strips applied. [facility] Medical History Migraines Microhematuria Esophagitis Hiatal hernia Hx of lipoma Gout History of benign schwannoma Hx of concussion Chronic leukopenia Acid reflux High blood pressure High cholesterol Surgical History History of thoracotomy History of esophagogastroduodenoscopy (EGD) H/O colonoscopy Hx of appendectomy History of tubal ligation Social History Alcohol intake: current Alcohol intake frequency: 0-2 drinks per day Patient Tobacco Use Status: Former Tobacco user Tobacco use type: Cigarette Years Smoked: 20 Current occupational status: retired Current occupation: rt hand Review of Systems Const All systems reviewed & are unremarkable except as noted in HPI and below Physical Exam Vital Signs: BMI result Body Mass Index 31.4 Extrem Other: Patient is alert, oriented, and in no acute distress. Neuro: Normal sensation of the tips of all digits of the right hand at this time Vascular: Cap refill brisk Pain: No tenderness to palpation of incision sites on volar right wrist and at A1 corie of right middle finger ROM: Patient was able to make a closed fist and extend all digits of the right hand fully No further visible or palpable locking and catching Skin: Well-approximated well-healing incision sites noted over the right middle finger A1 corie and the volar right wrist No lacerations or abrasions. General: No ecchymosis, erythema, or evidence of infection. Psych: Appears grossly normal Affect normal Attitude cooperative Assessment & Plan Assessment & Plan (1) Trigger finger, right middle finger: Code(s): M65.331 - Trigger finger, right middle finger Category: Medical (2) Carpal tunnel syndrome on both sides: Code(s): G56.03 - Carpal tunnel syndrome, bilateral upper limbs Category: Medical Plan 1. Status post right middle finger trigger release 2. Status post right carpal tunnel release DOS 08/29/2024 Patient appears to be recovering well postoperatively Patient is educated about the typical recovery course At this time, patient is informed that she will require no acute follow-up with us for the surgeries Advised on range of motion and strengthening, declines OT at this time 3. Left carpal tunnel syndrome Symptoms intermittent, daily, worse at night At this time, patient defers operative intervention, as she is traveling quite a bit during the summer and we will defer until the fall or winter Coding Level of Care Code Global (80928) Diagnoses Trigger finger, right middle finger M65.331 Carpal tunnel syndrome on both sides G56.03
[2024-09-09 09:26] VITALS: BMI 31.4
--- OUTSIDE RECORDS SUMMARY | 2024-09-09 09:31 | XMS_ITS ---
Author Organization [facility] Address [address] [place] [address] Care Team Providers Care Sales Enablement Consultant Name Role Phone Nadia Jacobson Primary Care Provider UnavailAbel Kapoor [phone] Encounters Encounter Location Date Provider Diagnosis [facility] [address] [place] [address] 06/28/2023 Abel Alas Plan Of Treatment No Information Progress Notes * JEWEL HORTON MDOB:[birth year] (78 yo F)Acc No.[id number]:06/28/2023 Patient:?JEWEL HORTON :1945???Age:78 Y???Sex:Female Address:[address] [place] [address] [facility] [place] [address] * true * Date:? Generated for Printi ng/Faalexig/eTransmitting on:?09/09/2024 09:30 AM EDT
--- OUTSIDE RECORDS SUMMARY | 2024-09-09 09:31 | XMS_ITS ---
Author Organization [facility] Address [address] [place] [address] Care Team Providers Care Fitter Armament Name Role Phone JesusspencerNadia Primary Care Provider Unavailab Abel Roberson Unavailable [phone] REASON FOR VISIT screening Problems Problem Type SNOMED Code ICD Code Onset Dates Problem Status W/U Status Risk Notes Problem Diverticular disease of colon (574115251) Diverticulosis of large intestine without perforation or abscess without bleeding (K57.30) Active confirmed Encounters Encounter Location Date Provider Diagnosis [facility] [place] [place] Out[facility] [address] [place], [place] [id number] 06/12/2023 Abel Alas Encounter for scre ening [...] * JEWEL HORTON MDOB:[birth year] (79 yo F)Acc No.[id number]:06/12/2023 COLON WITH MAC Patient:?JEWEL HORTON Provider:?Abel Alas MD :1945???Age:77 Y???Sex:Female D ate:06/12/2023 Address:[address] [place] [address], [facility] [id number] Pcp:Nadia Jacobson Subjective: * Chief Complaints: * [...] Alas MD Date:? 024 Generated for Eduardo bernstein/Reddy/Morsmitting on:?09/09/2024 09:30 AM EDT
--- OUTSIDE RECORDS SUMMARY | 2024-09-09 09:31 | XMS_ITS | Patient Health Record ---
Author Organization [facility] Address [address] [place] [address] Care Team Providers Care Cnc Operator Programmer Name Role Phone Nadia Jacobson Primary Care Provider Abel De La Garza Unavailable [phone] Allergies Allergen (clinical drug ingredient) Drug/Non Drug [...] Problem Status W/U Status Risk Notes Problem [id number] Colon cancer screening (Z12.11) Active confirmed Problem Diverticular disease of colon (144308792) Diverticulosis of large intestine without perforation or abscess without bleeding (K57.30) Active confirmed Problem [id number] Preprocedural examination (Z01.818) Active confirmed Problem Gastroesophageal reflux disease (257678839) GERD without esophagitis (K21.9) Active confirmed Plan Of Treatment Future Test Test Name Order Date UPPER GI ENDOSCOPY 12/20/2013 COLONOSCOPY 05/12/2023 Insurance Providers Payer Name Payer Address Payer Phone Subscriber Number Group Number Insured Name Patient Relationship to Insured Coverage Start Date Coverage End Date MEDICARE OF [place] [address] [place] [address] [phone] [id number] KATIE ARNULFOJEWEL Hurtado Self - patient is the insured MED[employer] ATTN CLAIMS [address] [place] [address] [phone] [id number] JEWEL KELLY Self - patient is the insured Medical (General) History Medical History History ICD Code colonoscopy 09-01-2002-neg. except for a h yperplastic polyp Upper endoscopy 01-13-1997-ne g except for a small HH-no Conti's esophagus nor esophagitis Hypertension Chronic leukopenia Elevated cholesterol Denies [place],DM,CVA,Lung disease,renal dise ase Neg. screening colonoscopy in 12/2012 EGD 12/2013 small to moderate -sized hiatal hernia, no esophagitis, no Conti's Concussion from a fall in in 10/18 23 Surgical History Surgery Date(Month/Year) tubal ligation and ovarian cyst appendectomy [facility]
--- OUTSIDE RECORDS SUMMARY | 2024-09-09 09:31 | XMS_ITS ---
Author Organization [facility] Address [address] [place] [address] Care Team Providers Care Principal Systems Architect Name Role Phone [place] Nadia Primary Care Provider Abel De La Garza [phone] Allergies Allergen (clinical drug ingredient) Drug/Non Drug [...] Problem Status W/U Status Risk Notes Problem 627628802 Colon cancer screening (Z12.11) Active confirmed Problem 055307760012389 Preprocedural examination (Z01.818) Active confirmed Vital Signs Temperature 97.0 degrees Fahrenheit 05/12/20 23 Blood pressure systolic 00 mm Hg 05/12/20 23 Blood pressure diastolic 00 mm Hg 023 Height 65 in 05/12/2023 Weight 181 lbs 05/12/2023 BMI 30.12 kg/m2 05/12/2023 Encounters Encounter Location Date Provider Diagnosis [facility] [address] [place] [address] 05/12/2023 Abel Alas Colon cancer screeni ng [...] Up: prn, Reason: Progress Notes * POLINA HORTON MDOB:[birth year] (78 yo F)Acc No.[id number]:05/12/2023 Progress Notes Patient:?KEIRAAMAURI POLINA Michelle Provider:?Abel Alas MD :1945???Age:77 Y???Sex:Female D ate:05/12/2023 Address:[address] [place], [place] [id number] Pcp:Nadia Jacobson Subjective: * Chief Complaints: * [...] * Treatment: * Procedure Codes:?1036F TOBAC CO [id number] BP SCR NOT PRFRM REC REASON NOS * Preventive Medicine:? ??Counseling:?Care goal follow-up plan:?Above Normal BMI Follow-up?Giving encouragement to exercise,?BMI management provided?Yes.? ??Urinary Incontinence:?Urinary Incontinence?Assessment:?Absent,?Plan of care documented:?Yes,?Type of plan of care:?Lifestyle interventions.? * Follow Up:?prn * * Sign off status: Completed true * Provider:?Abel Alas MD Date:? 023 Generated for Eduardo bernstein/Reddy/Alexitting on:?09/09/2024 09:31 AM EDT History and Physical Notes * HPI (History [...]
== END 2024-09-09 09:54 | disposition home or self-care (01) ==
LOC: HO.HOS 09:13
DX: M65.331 Trigger finger, right middle finger (principal); G56.03 Carpal tunnel syndrome, bilateral upper limbs
CPT/HCPCS: 99024

== ENCOUNTER → 2024-09-09 09:12 | Outpatient (BNVA) | payer MEDICARE, SELFPAY | DX: M65.331 Trigger finger, right middle finger (principal); G56.03 Carpal tunnel syndrome, bilateral upper limbs | CPT/HCPCS: 99212 ==

== ENCOUNTER 2025-01-20 09:44 | Outpatient (REF) | payer MEDICARE, SELFPAY ==
--- OUTSIDE RECORDS SUMMARY | 2025-01-20 09:47 | XMS_ITS | Patient Health Record ---
Author Organization [facility] Address [address] [place] [address] Care Team Providers Care Core Worker Name Role Phone Nadia Jacobson Primary Care Provider Abel De La Garza Unavailable [phone] Allergies Allergen (clinical drug ingredient) Drug/Non Drug [...] Problem Status W/U Status Risk Notes Problem 763934247 Colon cancer screening (Z12.11) Active confirmed Problem Diverticulosis o f large intestine without perforation or abscess without bleeding (K57.30) Active confirmed Problem 090532475848995 Preprocedural examination (Z01.818) Active confirmed Problem Gastroesophageal reflux disease (540714527) GERD without esophagitis (K21.9) Active confirmed Plan Of Treatment Future Test Test Name Order Date UPPER GI ENDOSCOPY 12/20/2013 COLONOSCOPY 05/12/2023 Insurance Providers Payer Name Payer Address Payer Phone Subscriber Number Group Number Insured Name Patient Relationship to Insured Coverage Start Date Coverage End Date [place]ARE [place] [address] [place] [address] [id number] KATIE GUYJEWEL Self - patient is the insured MED[employer] ATTN CLAIMS [address] [place] [address] [id number] JEWEL KELLY Self - patient is the insured Medical (General) History Medical History History ICD Code colonoscopy 09-01-2002-neg. except for a h yperplastic polyp Upper endoscopy 01-13-1997-ne g except for a small HH-no Conti's esophagus nor esophagitis Hypertension Chronic leukopenia Elevated cholesterol Denies [place],DM,CVA,Lung disease,renal dise ase Neg. 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 Tavarez
== END 2025-01-20 09:45 | disposition home or self-care (01) ==
LOC: HO.MAMMO 09:44
PROVIDERS: PCP Internal Medicine; Visit Provider Internal Medicine
DX: Z12.31 Encounter for screening mammogram for malignant neoplasm of breast (principal)
CPT/HCPCS: 77063; 77067

== ENCOUNTER → 2025-01-20 09:45 | Outpatient (BNV) | payer MEDICARE, SELFPAY | PROVIDERS: PCP Internal Medicine; Visit Provider Internal Medicine | DX: Z12.31 Encounter for screening mammogram for malignant neoplasm of breast (principal) | CPT/HCPCS: 77063; 77067 ==

== ENCOUNTER 2025-02-03 09:56 | Outpatient (REF) | payer MEDICARE, SELFPAY ==
--- OUTSIDE RECORDS SUMMARY | 2025-02-03 10:47 | XMS_ITS | Patient Health Record ---
Author Organization [facility] Address [address] [place] [id number] Care Team Providers Care Photonic Laboratory Technician Name Role Phone Nadia Jacobson Primary Care Provider Abel De La Garza Unavailable [phone] Allergies Allergen (clinical drug ingredient) Drug/Non Drug [...] Problem Status W/U Status Risk Notes Problem 180741275 Colon cancer screening (Z12.11) Active confirmed Problem Diverticular disease of colon (060820032) Diverticulosis of large intestine without perforation or abscess without bleeding (K57.30) Active confirmed Problem [id number] Preprocedural examination (Z01.818) Active confirmed Problem Gastroesophageal reflux disease (701161263) GERD without esophagitis (K21.9) Active confirmed Plan Of Treatment Future Test Test Name Order Date UPPER GI ENDOSCOPY 12/20/2013 COLONOSCOPY 05/12/2023 Insurance Providers Payer Name Payer Address Payer Phone Subscriber Number Group Number Insured Name Patient Relationship to Insured Coverage Start Date Coverage End Date MEDICARE OF [place] [address] [place] [address] [id number] KATIE ARNULFOJEWEL Hurtado Self - patient is the insured [employer] ATT[employer] CLAIMS [address] [place] [address] [id number] JEWEL KELLY Self - patient is the insured Medical (General) History Medical History History ICD Code colonoscopy 09-01-2002-neg. except for a h yperplastic polyp Upper endoscopy 01-13-1997-ne g except for a small HH-no Conti's esophagus nor esophagitis Hypertension Chronic leukopenia Elevated cholesterol Denies TN,DM,CVA,Lung disease,renal dise ase Neg. screening colonoscopy in 12/2012 EGD 12/2013 small to moderate -sized hiatal hernia, no esophagitis, no Conti's Concussion from a fall in in 10/18 23 Surgical History Surgery Date(Month/Year) tubal ligation and ovarian cyst appendectomy [facility]
[2025-02-03 11:31] LABS: Alanine Aminotransferase 26 U/L (0-31); Albumin Level 5.0 g/dL (3.5-5.0); Alkaline Phosphatase 74 U/L (39-117); Anion Gap 14 (12-20); Aspartate Amino Transferase 30 U/L (5-31); Blood Urea Nitrogen 10 mg/dL (9-16); Calcium 10.1 mg/dL (8.4-10.2); Carbon Dioxide 26 mmol/L (22-29); Chloride 102 mmol/L (96-108); Cholesterol 181 mg/dL (<200); Estimated Glomerular Filt Rate > 60; HDL Cholesterol 90 mg/dL (>40); Potassium 3.7 mmol/L (3.3-5.1); Sodium 138 mmol/L (135-145); Total Protein 7.3 g/dL (6.5-8.0); Triglycerides 96 mg/dL (<150)
[2025-02-03 11:39] LABS: Parathyroid Hormone Intact 63.5 pg/mL (8.7-77.1)
== END 2025-02-03 09:57 | disposition home or self-care (01) ==
LOC: HO.LAB 09:56
PROVIDERS: PCP Internal Medicine; Visit Provider Internal Medicine
DX: E78.00 Pure hypercholesterolemia, unspecified (principal); E83.52 Hypercalcemia; I10 Essential (primary) hypertension; K21.9 Gastro-esophageal reflux disease without esophagitis
CPT/HCPCS: 36415; 80053; 80061; 83970